=== PATIENT | male | born 1945 | race Caucasian/White ===

== ENCOUNTER 2022-12-21 15:23 | Emergency (ER) | payer MEDICARE, OTHER, SELFPAY ==
[2022-12-21 15:33] VITALS: BP 120/71; PULSE 77; RESP 18; TEMP 37.1; O2SAT 97; BMI 26.5
--- NOTE | 2022-12-21 15:48 | XR_ITS ---
The [address] [address] Patient Name: ABDOULAYE HUMPHRIES MRN: [id number] date: 1945 Sex: M Assigned Patient Location: ED.MAIN Current Patient Location: ED.MAIN Accession/Order Number: [id number] Exam Date: 12/21/2022 15:52 Report Date: 12/21/2022 16:31 At the request of: ALETHA BRITTON Procedure: XR shoulder LT min 2V EXAM: XR clavicle LT, XR shoulder LT min 2V HISTORY: Fall COMPARISON: None. TECHNIQUE: 2 views of the clavicle and 3 views of the shoulder. FINDINGS: IMPRESSION: Displaced intra-articular fracture of the left distal clavicle. Degenerative changes of the acromioclavicular joint. The glenohumeral joint is unremarkable for patient's age. No additional fracture, dislocation or subluxation. Electronically authenticated by: MEHNAZ DOMINGUEZ Date: 12/21/2022 16:31
--- NOTE | 2022-12-21 15:50 | ED_ITS ---
HPI - Extremity Injury (Upper) General Chief Complaint: Extremity Injury, Upper Stated Complaint: shoulder pain d/t fall Time Seen by Provider: 12/21/22 15:28 Source: patient Mode of arrival: walk-in Limitations: physical limitation History of Present Illness HPI narrative: patient here with an injury to his left clavicular left shoulder area. He fell couple hours ago at home. He did not his head or neck and has no loss of consciousness he has a good recall of all events. He has no pain in his neck. Denies any other injuries to his trunk torso or extremities. He'll be sent to imaging for left clavicle and shoulder. He's not had previous fractures in these areas. Related Data Home Medications Medication Instructions Recorded Confirmed alprazolam 0.5 mg tablet 0.5 mg PO DAILY PRN anxiety 12/21/22 12/21/22 midodrine 5 mg tablet 5 mg PO TID 12/21/22 12/21/22 sertraline 100 mg tablet 200 mg PO Q24H 12/21/22 12/21/22 trazodone 100 mg tablet 200 mg PO DAILY 12/21/22 12/21/22 Allergies Allergy/AdvReac Type Severity Reaction Status Date / Time No Known Drug Allergies Allergy Verified 12/21/22 15:32 PFSH [facility] Social History Smoking status: Never smoker Exam Narrative Exam Narrative: mildly uncomfortable awake alert oriented ?3 very stoic. Problem focused examination as below Constitutional Vital Signs - 24 hr 12/21/22 15:33 Temperature 98.7 F Pulse Rate [Monitor] 77 Respiratory Rate 18 Blood Pressure [Right Arm] 120/71 H Pulse Oximetry 97 Oxygen Delivery Method Room Air Respiratory Common normals: normal respiratory effort, no retractions, no use of accessory muscles and clear to auscultation bilaterally Extremity Common normals: normal to inspection Other: patient has discomfort in in the mid to distal clavicle on the left side. The shoulder is really asymptomatic and normal inspection. The elbow forearm and wrist area is atraumatic. Course Vital Signs Vital signs: Vital Signs Temperature 98.7 F 12/21/22 15:33 Pulse Rate 77 12/21/22 15:33 Respiratory Rate 18 12/21/22 15:33 Blood Pressure 120/71 H 12/21/22 15:33 Pulse Oximetry 97 12/21/22 15:33 Oxygen Delivery Method Room Air 12/21/22 15:33 Temperature 98.7 F 12/21/22 15:33 Pulse Rate 77 12/21/22 15:33 Respiratory Rate 18 12/21/22 15:33 Blood Pressure 120/71 H 12/21/22 15:33 Pulse Oximetry 97 12/21/22 15:33 Oxygen Delivery Method Room Air 12/21/22 15:33 MDM - Extremity Injury (Upper) MDM Narrative Medical decision making narrative: x-rays were reviewed by myself show nondisplaced fracture of the distal clavicle. Neurovascular examination of the extremity is normal. We will place him in a sling and swath and follow-up with orthopedics Discharge Plan Discharge Chief Complaint: Extremity Injury, Upper Clinical Impression: Fracture of acromial end of left clavicle Patient Disposition: Home, Self-Care Time of Disposition Decision: 16:12 Prescriptions / Home Meds: No Action midodrine 5 mg tablet 5 mg PO TID trazodone 100 mg tablet 200 mg PO DAILY sertraline 100 mg tablet 200 mg PO Q24H alprazolam 0.5 mg tablet 0.5 mg PO DAILY PRN (Reason: anxiety) Instructions: Clavicle Fracture (ED) Stand Alone Forms: Portal Instructions Referrals: ADITI JAMES [Primary Care Provider] - 1 week Discharge Date/Time: 12/21/22 16:54
--- NOTE | 2022-12-21 15:53 | XR_ITS ---
The [address] [address] Patient Name: ABDOULAYE HUMPHRIES MRN: [id number] date: 1945 Sex: M Assigned Patient Location: ER Current Patient Location: ED.MAIN Accession/Order Number: [id number] Exam Date: 12/21/2022 16:02 Report Date: 12/21/2022 16:31 At the request of: ALETHA BRITTON Procedure: XR clavicle LT EXAM: XR clavicle LT, XR shoulder LT min 2V HISTORY: Fall COMPARISON: None. TECHNIQUE: 2 views of the clavicle and 3 views of the shoulder. FINDINGS: IMPRESSION: Displaced intra-articular fracture of the left distal clavicle. Degenerative changes of the acromioclavicular joint. The glenohumeral joint is unremarkable for patient's age. No additional fracture, dislocation or subluxation. Electronically authenticated by: MEHNAZ DOMINGUEZ Date: 12/21/2022 16:31
== END 2022-12-21 16:54 | disposition home or self-care (01) ==
PROVIDERS: Emergency Provider Emergency Medicine Emergency Medical Services; PCP Family Medicine
DX: S42.032A Displaced fracture of lateral end of left clavicle, initial encounter for closed fracture (principal); W19.XXXA Unspecified fall, initial encounter; Z79.899 Other long term (current) drug therapy
CPT/HCPCS: 73000; 73030; 99283

== ENCOUNTER 2023-04-21 12:07 | Outpatient (OUT) | payer MEDICARE, OTHER, SELFPAY ==
[2023-04-22 09:10] LABS: PSA, Free 1.56 ng/mL; Prostate Specific Ag 5.1 ng/mL (0.0-4.0)
== END 2023-04-21 12:08 | disposition home or self-care (01) ==
LOC: LAB 12:07
PROVIDERS: PCP Family Medicine; Visit Provider Urology
DX: R97.20 Elevated prostate specific antigen [PSA] (principal); N40.1 Benign prostatic hyperplasia with lower urinary tract symptoms; N13.8 Other obstructive and reflux uropathy
CPT/HCPCS: 36415; 84153; 84154

== ENCOUNTER 2023-10-23 11:28 | Outpatient (OUT) | payer MEDICARE, OTHER, SELFPAY ==
--- NOTE | 2023-10-23 11:31 | US_ITS ---
The [address] [address] Patient Name: ABDOULAYE HUMPHRIES MRN: [id number] date: 1945 Sex: M Assigned Patient Location: US Current Patient Location: Accession/Order Number: [id number] Exam Date: 10/23/2023 11:32 Report Date: 10/24/2023 11:37 At the request of: PATRICK PUGA Procedure: US renal BI EXAMINATION: US renal BI HISTORY: Gross Hematuria R31.0 ; history of stage III kidney disease COMPARISON: Ultrasound kidneys 07/25/2022, CT abdomen pelvis 06/16/2019 TECHNIQUE: Ultrasound examination was performed of the kidneys and urinary bladder. FINDINGS: RIGHT KIDNEY: Mild cortical thinning, 1.0 cm in thickness. No evidence of pelvocaliectasis, mass, or calculi. Normal renal cortical parenchymal echogenicity. Color Doppler demonstrates blood flow within the kidney. Kidney: 10.5 x 4.5 x 4.0 cm LEFT KIDNEY: Chronic, benign-appearing 9.2 cm cyst. Moderate cortical thinning, 0.6 cm. No evidence of pelvocaliectasis, mass, or calculi. Normal renal cortical parenchymal echogenicity. Color Doppler demonstrates blood flow within the kidney. Kidney: 10.4 x 4.7 x 3.7 cm BLADDER: No visible wall thickening, mass, or calculi. US/US renal BI IMPRESSION: 1. Mild right, moderate left cortical thinning consistent with patient history. 2. Chronic, benign-appearing 9.2 cm left renal cyst. 3. No appreciable mass, stones, or obstructive uropathy. Electronically authenticated by: MAGNUS FRIAS Date: 10/24/2023 11:37
== END 2023-10-23 11:29 | disposition home or self-care (01) ==
LOC: US 11:28
PROVIDERS: PCP Family Medicine; Visit Provider Urology
DX: R31.0 Gross hematuria (principal); N28.1 Cyst of kidney, acquired
CPT/HCPCS: 76775

== ENCOUNTER 2023-12-18 11:16 | Outpatient (OUT) | payer MEDICARE, OTHER, SELFPAY ==
--- NOTE | 2023-12-18 11:22 | ECG_ITS ---
The [facility] Test Date: 2023-12-18 Pat Name: ABDOULAYE HUMPHRIES Department: Room: - Gender: Male [employer]omer [employer] Operator: : 1945 Requested By: Order Number: [id number] Reading MD: MARI HOLM Measurements Intervals [place] Rate: 56 P: 2 NC: 167 QRS: 22 QRSD: 90 T: 42 QT: 426 QTc: 411 Interpretive Statements SINUS BRADYCARDIA Compared to ECG 10/09/2022 14:08:12 Sinus tachycardia no longer present ST (T wave) deviation no longer present Electronically Signed On 12-18-2023 23:03:46 EDT by MARI HOLM
--- NOTE | 2023-12-18 12:03 | XR_ITS ---
The [address] [address] Patient Name: ABDOULAYE HUMPHRIES MRN: [id number] date: 1945 Sex: M Assigned Patient Location: [facility] Current Patient Location: Accession/Order Number: [id number] Exam Date: 12/18/2023 12:12 Report Date: 12/19/2023 07:45 At the request of: PATRICK PUGA Procedure: XR chest 2V EXAMINATION: XR chest 2V HISTORY: Preop exam COMPARISON: 10/24/2022 TECHNIQUE: PA and lateral FINDINGS: LUNGS: 3.2 x 1 cm density projects of the left midlung previously determined to be pleural calcification by CT exam. No new pulmonary nodule, mass or consolidation VASCULATURE: No increased pulmonary vasculature. PLEURA: No pneumothorax, effusion, or pleural thickening. CARDIAC: No cardiomegaly or cardiac silhouette abnormality. MEDIASTINUM: No visible mass or adenopathy. BONES: Mild degenerative disc disease and spondylosis without visible acute abnormalities. OTHER: Negative. XR/XR chest 2V IMPRESSION: No acute cardiopulmonary process Electronically authenticated by: MEHNAZ ROSE Date: 12/19/2023 07:45
[2023-12-18 12:32] LABS: Basophils Percent Auto 0.8 % (0.2-2.0); Eosinophils Absolute Auto 0.2 10^3/uL (0.0-0.7); Eosinophils Percent Auto 4.1 % (0.9-7.0); Hematocrit 39.6 % (42.0-54.0); Hemoglobin 12.5 g/dL (14.0-18.0); Immature Granulocytes Abs Auto 0.01 10^3/uL (0.00-0.03); Immature Granulocytes Pct Auto 0.2 % (0.0-0.5); Lymphocytes Absolute Auto 1.3 10^3/uL (1.2-3.8); Lymphocytes Percent Auto 25.5 % (20.5-60.0); Mean Corpuscular HGB Conc 31.6 g/dL (29.9-35.2); Mean Corpuscular Hemoglobin 30.5 pg (25.9-34.0); Mean Corpuscular Volume 96.6 fL (80.0-94.0); Mean Platelet Volume 10.5 fL (9.5-13.5); Monocytes Absolute Auto 0.5 10^3/uL (0.3-0.8); Monocytes Percent Auto 9.8 % (1.7-12.0); Neutrophils Absolute Auto 3.1 10^3/uL (1.4-6.5); Neutrophils Percent Auto 59.6 % (43.0-75.0); Platelet Count 204 10^3/uL (150-450); Red Cell Distribution Width 14.8 % (11.0-15.0); White Blood Count 5.2 10^3/uL (4.0-11.0)
[2023-12-18 13:07] LABS: Anion Gap 13.1; BUN Creatinine Ratio 13.9; Calcium 8.1 mg/dL (8.5-10.1); Carbon Dioxide 25.5 mmol/L (21.0-32.0); Chloride 110 mmol/L (98-107); Estimated GFR (African America 47 (>=60); Estimated GFR (Non-African Ame 38 (>=60); Glucose 95 mg/dL (74-106); INR 0.98; Partial Thromboplastin Time 28.3 sec (22.3-36.2); Potassium 4.6 mmol/L (3.5-5.1); Prothrombin Time 10.4 sec (9.0-11.6); Sodium 144 mmol/L (136-145)
[2023-12-18 14:20] LABS: Prostate Specific Antigen Dx 4.63 ng/mL (<=4.00)
== END 2023-12-18 11:17 | disposition home or self-care (01) ==
LOC: PST 11:17
PROVIDERS: PCP Family Medicine; Visit Provider Urology
DX: Z01.810 Encounter for preprocedural cardiovascular examination (principal); Z01.812 Encounter for preprocedural laboratory examination; N40.1 Benign prostatic hyperplasia with lower urinary tract symptoms
CPT/HCPCS: 71046; 80048; 84153; 85025; 85610; 85730; 93005

== ENCOUNTER 2024-01-15 11:29 | Day surgery (SDC) | payer MEDICARE, OTHER, SELFPAY ==
[2023-12-18 11:27] VITALS: BP 132/82; PULSE 58; TEMP 36.4; O2SAT 98; BMI 29.4
[2024-01-15] VITALS (18 sets, daily range): BP systolic 128–160; BP diastolic 73–108; PULSE 59–82; TEMP 36.2–36.6; O2SAT 95–100; BMI 27.9; BMI 28.6
[2024-01-15] MEDS: LACTATED RINGER'S SOLUTION 1,000 ML 50 ML IV (12:04)
[2024-01-15] MEDS: LEVOFLOXACIN IN DEXTROSE 5 % 500 MG/100 ML PIGGYBACK 100 MG IV (13:25)
[2024-01-15] MEDS: LACTATED RINGER'S SOLUTION 1,000 ML 1000 ML IV (14:34)
--- NOTE | 2024-01-15 15:18 | P.URON_ITS ---
Urology Surgery Operative Note Operative Note Procedure Date: 01/15/24 Time Out Performed: yes Pre-op Diagnosis: Gross hematuria; BPH with LUTS Post-op Diagnosis: same as pre-op Procedures performed: 1. Urethral meatal dilation with Tyrese sounds to 26 Trin[place]. 2. Cystoscopy. 3. Transurethral resection of the prostate. Anesthesia: GETA Primary Surgeon: Daniel Cruz Complications: None Estimated blood loss (mL): 5 Findings: 2 areas of minor bleeding from the prostate. Moderate prostatic regrowth. Specimens: Prostate chips Drains: 22 [place] three-way coud? Queen catheter in the bladder Taped to Traction and CBI. Indications for Procedures: This gentleman had a TURP a little less than 2 years ago. He developed recurrent bouts of gross hematuria. Office cystoscopy revealed that he had areas of the prostate that were Mildly bleeding.He now presents for cystoscopy, Fulguration and TURP. He has signed an informed consent after risks were explained. Some of these risks include bleeding, infection, anesthesia, retrograde ejaculation, urinary incontinence both temporary and permanent,Erectile dysfunction and possible need for further procedures to name a few. Detailed description of Procedure: The patient was brought to the operating room and placed on the operating room table in the supine position. SCDs were placed on the lower extremities and turned on and functioning during the entire case. Timeout was done by all parties in the room. We all agreed upon the patient's identification and the planned procedures for this patient. Genn. anesthesia was then administered. The patient was then repositioned into the modified dorsal lithotomy position. All pressure points were satisfactorily padded. Genitalia were sterilely prepped and draped in usual fashion.I started by attempting to pass a 26 [place] Olympus resectoscope with a standard bipolar loop electrode but was unable due to mild meatal stenosis. I then used Tyrese sounds and dilated the meatus up to 26 [place]. I then was able to get the resectoscope through the urethra and into the bladder. The bladder appeared without evidence of bleeding. There were no tumors. The orifices were marked with the loop electrode. I then brought the scope back into the prostate and found a few areas that were oozing blood. IDecided to resect some tissue. I started at the bladder neck and resected posteriorly to the Veru. Left lateral lobe tissue that was bleeding was then resected. Similarly, right lateral lobe tissue that was bleeding was resected. I then brought the scope to the apex and opened this up some and coagulated using the vaporization loop. I coagulated all of the resection bed and at the apex.The Ilich evacuator was used to get all of the chips out of the bladder and these were sent for permanent sections. The ureteral orifices were untouched. The prostate was now without evidence of bleeding. It is wide open. The scope was then removed. I then placed a 22 [place] three-way coud? Queen in the bladder. It was manually irrigated with a Irwin syringe. 30 cc of fluid was then placed in the balloon. It was then taped to traction and CBI was started. It irrigated clear. The anesthetic was then reversed. He was then transferred to a renderlin bed and wheeled to PACU in stable condition. Urinary Catheter Management Urinary Catheter Management 2-way Urethral: Cath placed during this visit: yes Urethral indwelling: Yes Reason for continuing: surgical procedure Insertion date: 01/15/24
[2024-01-15] MEDS: SOLIFENACIN SUCCINATE 10 MG TABLET PO (15:30)
[2024-01-15] MEDS: HYOSCYAMINE SULFATE 0.125 MG TAB.SUBL SL (15:48)
[2024-01-15] MEDS: 0.9 % SODIUM CHLORIDE 1,000 ML 80 ML IV (16:49)
[2024-01-15] MEDS: SODIUM CHLORIDE IRRIG SOLUTION 3,000 ML 3000 ML IRR ×4 (16:50→22:33)
[2024-01-15] MEDS: CEFAZOLIN SODIUM/DEXTROSE,ISO 1 GM/50 ML IV.SOLN IV ×2 (18:25→23:09)
[2024-01-15] MEDS: TRAZODONE HCL 50 MG TABLET 200 MG PO (21:25)
[2024-01-16] VITALS: BP 119/63; PULSE 61; TEMP 36.7; O2SAT 95
[2024-01-16] MEDS: SODIUM CHLORIDE IRRIG SOLUTION 3,000 ML 3000 ML IRR (01:32)
[2024-01-16 04:00] VITALS: BP 115/62; PULSE 55; TEMP 36.6; O2SAT 94
[2024-01-16] MEDS: 0.9 % SODIUM CHLORIDE 1,000 ML 80 ML IV (06:05)
[2024-01-16 08:00] VITALS: BP 129/57; PULSE 55; TEMP 36.6; O2SAT 96
[2024-01-16] MEDS: SERTRALINE HCL 100 MG TABLET 200 MG PO (08:45)
[2024-01-16] MEDS: SOLIFENACIN SUCCINATE 10 MG TABLET PO (08:45)
== END 2024-01-16 10:20 | disposition home or self-care (01) ==
LOC: SURGOUT 15:08 → MS 15:24
PROVIDERS: PCP Family Medicine; Visit Provider Urology
PROC: (CPT 52630; principal; 2024-01-15 13:15)
DX: N40.1 Benign prostatic hyperplasia with lower urinary tract symptoms (principal); R31.0 Gross hematuria; Z87.891 Personal history of nicotine dependence; R97.20 Elevated prostate specific antigen [PSA]; Z80.42 Family history of malignant neoplasm of prostate; N28.1 Cyst of kidney, acquired; Z96.659 Presence of unspecified artificial knee joint; N18.9 Chronic kidney disease, unspecified
CPT/HCPCS: 52630; 36415; 88305; J0690; J1100; J2250; J2405; J2704; J3010

== ENCOUNTER 2024-12-14 10:34 | Emergency (ER) | payer MEDICARE, OTHER, SELFPAY ==
--- OUTSIDE RECORDS SUMMARY | 2024-11-24 11:00 | XMS_ITS | Encounter Summary ---
Author Organization [facility] Address [address] [place] [id number] Care Team Providers Care Professor Of Visual Arts Name Role Phone Unavailable Primary Care Provider Unavailabl e Source Comments In the event this information is protected by the Federal Confidentiality of Alcohol and Drug AbusePatient Records regulations: The Federal rules restrict any use of the information to criminally investigate or prosecute any alcohol or drug abuse patient.[facility] Reason for Visit * Reason Comments Follow Up Encounter Details Date Type Department Care Team (Latest Contact Info) Description 11/24/2024 11:00 AM EDT Office Visit Kidney Medicine [facility] [address] [phone] [place] [address] [place] [phone] Screening for genitourinary condition (Primary Dx); Stage 3b chronic kidney disease (HCC); Hyperglycemia Social History Tobacco Use Types Packs/Day Years Used Date Smoking Tobacco: Former Cigarettes 2 23 1 - 07/05/1981 Passive Smoke Exposure: Never Smokeless Tobacco: Never Comments:quit 30 years ago Alcohol Use Standard Drinks/Week Comments Yes 22 (1 standard drink = 0.6 oz pu re alcohol) occ PHQ-2 Answer Date Recorded PHQ2 Score 0 02/19/2018 Area Deprivation Index Answer Date Emmanuel rded National Score (1-100), lower number is lower ri sk 94 11/08/2022 State Score (1-10), lower number is lower risk 9 11/08/2022 Data from: https://www.neighborhoodatlas[facility]/. Last address used for calculation [address] [place] [address] [address] 11/08/2022 Sex and Gender Information Value Date Recorded Sex Assigned at Not on file Legal Sex Male 8:55 AM EST Gender Identity Male 02/18/2023 3:34 PM EDT Sexual Orientation Not on file documented as of this encounter Last Filed Vital Signs Vital Sign Reading Time Taken Comments Blood Pressure 112/71 11/24/2024 10:53 AM EDT Pulse 70 11/24/2024 10:53 AM EDT Temperature - - Respiratory Rate - - Oxygen Saturation - - Inhaled Oxygen Concentration - - Weight 94 kg (207 lb 3.7 oz) 11/24/2024 10:53 AM EDT Height 185.4 cm (6' 1 ) 11/24/2024 10:53 AM EDT Body Mass Index 27.34 11/24/2024 10:53 AM EDT documented in this encounter Patient Instructions * Patient Instructions* Chelo Ng MD - 11/24/2024 11:18 AM EDT We discussed your heart health and kidney function: - Your kidney function is stable, and there is no protein in your urine, which is a good sign. We will continue to monitor this. - Your blood pressure is excellent. However, you mentioned feeling dizzy when standing up. Please take your time when getting up, such as sitting on the edge of the bed before standing. - Continue taking Eliquis (apixaban) as prescribed for your stent. You mentioned your fireworks display specialist advised continuing it for about a year. Please confirm this plan with your fireworks display specialist at your nextvisit in December or January. Be cautious to avoid falls or injuries while on this medication, as it increases your risk of bruising and bleeding. - You reported no chest pain or shortness of breath, and your recent physical activity (e.g., moving stone and mulch) suggests the stent is working well. Continue staying active as tolerated. We discussed your blood sugar and diet: - Your glucose levels have been high on occasion. I recommend an A1c test to screen for diabetes orpre-diabetes. This test has been ordered and can be completed at your convenience in [place] or another lab of your choice. - Please work on reducing your intake of sweets and snack foods. Aim for a heart-healthy, balanced diet with more fruits, vegetables, and smaller portions of meat. Avoid adding sugar to foods like cherries and consider sugar-free options for beverages like moisés alessandra. We discussed your medications: - Continue taking Zoloft, trazodone, and Xanax as prescribed, as this combination has been working well for you. - You are taking magnesium oxide 400 mg at night. I will monitor your magnesium levels in the future to ensure they remain safe given your kidney condition. - You mentioned using oxycodone sparingly for back and neck pain. Continue to use it only as needed. We discussed your general health: - You reported occasional foamy urine, but this is not concerning as your urine protein levels are normal. - Your phosphorus level is slightly low. This is not concerning at this time, but we will continue to monitor it. - There is no swelling in your legs, and your physical exam was normal. Follow-up: - Please complete the A1c test at your convenience. - I recommend we continue seeing each other every six months. If you experience any new or worsening symptoms, such as chest pain, shortness of breath, or significant dizziness, please contact me immediately. documented in this encounter Progress Notes * Chelo Ng MD - 11/24/2024 11:00 AM EDT Images from the original note were not included. Department of Kidney Medicine Medical Specialties [facility] CHIEF COMPLAINT: CKD HPI: Mr. 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 . Interval Events: Mr. Sharpe had a stent placed in July and is under the care of a fireworks display specialist. He reports improvement in dyspnea and denies chest pain. He has been engaging in rigorous physical activities such as moving stones and carrying mulch without issues. He is currently on a blood thinner, possibly Eliquis or Plavix, for the stent and expects to continue for about a year. He notes easy bruising on this medication. He had a fall post-stent placement, resulting in a head injury and a CT scan performed was unremarkable. Mr. Sharpe reports occasional foamy urine but denies dysuria, hematuria, or leg swelling. He is on magnesium oxide 400 mg at night for leg cramps, which he feels is ineffective. He also takes Zoloft, trazodone, and Xanax for anxiety, which he reports are working well. He uses oxycodone sparingly for back and neck pain and takes acyclovir as needed. He experiences dizziness upon standing and denies recent weight loss. He has a preference for sweets and an erratic diet, consuming meat, potatoes, cherries with added sugar, pretzels with chip dip. He drinks cranberry juice and moisés alessandra ( not sugar-free variety). His glucose levels have been elevated, with a recent reading of 125 mg/dL, and he has not had an A1c test. He denies fevers or chills. Creatinine Date Value Ref Range Status 11/22/2024 1.87 (H) 0.73 - 1.22 mg/dL Final 05/13/2024 1.92 (H) 0.73 - 1.22 mg/dL Final 04/22/2024 1.80 (H) 0.73 - 1.22 mg/dL Final 10/15/2023 1.83 (H) 0.73 - 1.22 mg/dL Final ROS Constitutional: (-) fever, (-) chills, (-) weight loss Cardiovascular: (-) chest pain Respiratory: (-) shortness of breath Genitourinary: (-) dysuria, (-) hematuria, (+) foamy urine Musculoskeletal: (+) neck pain, (+) back pain Neurological: (+) dizziness Hematologic/Lymphatic: (+) easy bruising MEDICATIONS: Magnesium Amino Acid Chelate 100 mg tab Take by mouth. vitamin b complex capsule Take 1 capsule by mouth once daily. magnesium oxide 200 mg magnesium chew Take by mouth q 24 HR. acyclovir (ZOVIRAX) 5 % crea q 8 HR. oxyCODONE-acetaminophen (PERCOCET) 5-325 mg tablet TAKE 1 TABLET BY MOUTH UP TO TWICE A DAY IF NEEDED FOR PAIN tiZANidine (ZANAFLEX) 4 mg tablet Take by mouth. (Patient not taking: Reported on 04/22/2023) ALPRAZolam (XANAX) 0.5 mg tablet Take by mouth q 8 HR. finasteride (PROSCAR) 5 mg tablet Take by mouth q 24 HR. (Patient not taking: Reported on 04/22/2023) sertraline (ZOLOFT) 100 mg tablet Take by mouth q 24 HR. (Patient not taking: Reported on 04/22/2023) traZODone (DESYREL) 100 mg tablet Take by mouth q 24 HR. (Patient not taking: Reported on 04/22/2023) ALPRAZolam (XANAX) 0.5 mg tablet sertraline (ZOLOFT) 100 mg tablet traZODone (DESYREL) 100 mg tablet finasteride (PROSCAR) 5 mg tablet (Patient not taking: Reported on 04/22/2023) New blood thinner from stent placement for roughly 1 year. Not taking finasteride, occasionally oxycodone for neck, back pain ALLERGIES: ALLERGIES Allergen Reactions Buspirone Mental Status Change PHYSICAL EXAM: 11/24/24 1053 BP: 112/71 Pulse: 70 Weight: 94 kg (207 lb 3.7 oz) Height: 185.4 cm (6' 1 ) BP - standardized method Pulse 1 BP #1: 112/73 Pulse #1: 74 beats/min 2 BP #2 : 113/69 Pulse #2 : 73 beats/min 3 BP #3 : 111/70 Pulse #3 : 64 beats/min Average Average BP: 112/71 Average Pulse: 70 beats/min Orthostatic vitals Supine Sitting Standing Standing BP : 90/58 Standing pulse : 76 BP cuff location BP cuff location: Left upper arm BP cuff size BP cuff size: large adult Comments for BP values First BP (right) First BP (left) Constitutional: NAD, well nourished, alert, and cooperative. Eyes: Conjunctivae clear, PERRL. EOM intact. Ear, Nose, and Throat: MMM, dentition normal, lips normal. No nasal congestion, no oral lesions or thrush. Neck: Trachea midline, no JVD, neck supple, no palpable masses or thyromegaly. No cervical, axillary, or clavicular lymphadenopathy. Cardiovascular: RRR, normal S1 and S2, no murmurs, rubs, or gallops. No peripheral edema. No carotid bruit. Respiratory: Normal respiratory effort, lungs CTA bilaterally, no wheezes, rales, or rhonchi. Abdomen: Soft, non-tender, no masses, normal bowel sounds. No suprapubic tenderness. No CVA tenderness. Musculoskeletal: Good muscle tone in UE/LE. No joint effusions or deformities. Extremities: No clubbing, cyanosis, or edema. Skin: No rashes Neurologic: AAO x3 Psychiatric: Normal mood and affect. DATA: Diagnostic tests reviewed for today's visit: Blood work, imaging studies, and office notes were reviewed in [facility] Latest Reference Range & Units 11/22/24 12:28 Sodium 136 - 144 mmol/L 140 Potassium 3.7 - 5.1 mmol/L 4.7 Chloride 98 - 107 mmol/L 108 (H) CO2 22 - 30 mmol/L 24 BUN 9 - 24 mg/dL 18 Creatinine 0.73 - 1.22 mg/dL 1.87 (H) Glucose 74 - 99 mg/dL 125 (H) Calcium 8.5 - 10.2 mg/dL 9.1 Phosphorus 2.7 - 4.8 mg/dL 2.5 (L) Albumin 3.9 - 4.9 g/dL 4.2 Anion Gap 8 - 15 mmol/L 8 eGFR >=60 mL/min/1.73m 36 (L) Creatinine, Ur Random (UCRR) 20.0 - 300.0 mg/dL 163.9 Protein, Urine Random 0 - 20 mg/dL 17 Protein/Creat Ratio <0.15 mg/mg 0.10 (H): Data is abnormally high (L): Data is abnormally low ASSESSMENT: 79 year old male who presents with HTN, BPH s/p TURP, s/p hip replacement, 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 He has low normal BP with symptomatic orthostasis (chronic). Metabolic and volume status are normal PLAN: - Reminded to avoid NSAID medications - Recommended to adhere to a AHA diet for cardio and renoprotection - Ordered A1C given recurrent high glucose levels on chemistries - Recommended to pause when going from lying to sitting or sitting to standing position given orthostasis, especially on anticoagulant. Disclosures: Parts of the current progress note may have been copied from a previous note, updates have been made as clinically relevant. I spent a total of 30 minutes on the date of the service which included preparing to see the patient, [id number] patient care, completing clinical documentation, obtaining and/or reviewing separately obtained history, performing a medically appropriate examination, counseling and educating the pat ient/family/caregiver, and ordering medications, tests, or procedures. Chleo Ng MD Staff, Department of Kidney Medicine 11/23/2024 5:33 PM CC: PRIMARY CARE PHYSICIAN: No primary care provider on file. documented in this encounter Plan of Treatment Scheduled Orders Name Type Priority Associated Diagnoses Orde r Schedule MAGNESIUM Lab Routine Stage 3b chronic kidney disease (HCC) Expected: 11/24/2024, Expires: 02/23/2025 HEMOGLOBIN A1C Lab Routine Hyperglycemia Expected: 11/24/2024, Expires: 02/23/2025 documented as of this encounter Visit Diagnoses Diagnosis Screening for genitourinary condition- Primary Screening for other and unspecified genitourinary condition Stage 3b chronic kidney disease (HCC) Hyperglycemia Other abnormal glucose documented in this encounter
--- OUTSIDE RECORDS SUMMARY | 2024-12-13 23:59 | XMS_ITS | Continuity of Care Document ---
Author Organization 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 [address] [place], [place] [address] Encounter Diagnosis Urethral meatal stenosis(Discharge Diagnosis) - 12/13/24 BPH with urinary obstruction(Discharge Diagnosis) - 12/13/24 Family history of prostate cancer(Discharge Diagnosis) - 12/13/24 Elevated PSA(Discharge Diagnosis) - 12/13/24 Discharge Disposition: Home (Routine DC) Attending Physician: LASHELL JOSEPH PA-C Encounter Type: Clinic Allergies, Adverse Reactions, Alerts Substance Criticality Severity Reaction Reaction Severity Status busPIRone 1 Unknown Active 1mild to moderate Assessment and Plan Future Appointments Appointment Date:06/13/2025 11:30:00 AM Scheduled Provider: Location:[facility] Appointment Type:URO Nurse Visit Appointment Date:12/12/2025 11:40:00 AM Scheduled Provider:LASHELL JOSEPH PA-C Location:[facility] Appointment Type:URO Office Visit Future Scheduled Tests Laboratory* PSA Total 06/14/25 * PSA Total 12/13/25 Immunizations Given and Recorded Vaccine Date Status Refusal Reason influenza virus vaccine, inactivated 05/21/23 Emmanuel rded influenza virus vaccine, inactivated 05/26/22 Emmanuel rded influenza virus vaccine, inactivated 03/26/20 Emmanuel rded influenza virus vaccine, inactivated 03/13/19 Emmanuel rded influenza virus vaccine, inactivated 04/11/18 Emmanuel rded influenza virus vaccine, inactivated 03/30/17 Emmanuel rded influenza virus vaccine, inactivated 04/24/15 Emmanuel rded SARS-CoV-2 (COVID-19) [id number] 05/14/22 Recorded influenza, unspecified formulation 1 04/25/22 Emmanuel rded SARSCoV2 mRNA(uvwvccghn-sxbw-osfziu) vac 11/22/21 Recorded SARS-CoV-2 (COVID-19) mRNA BNT-162b2 vax 2 05/18/21 Recorded SARS-CoV-2 (COVID-19) mRNA BNT-162b2 vax 05/10/21 Recorded SARS-CoV-2 (COVID-19) mRNA BNT-162b2 vax 10/02/20 Recorded SARS-CoV-2 (COVID-19) mRNA BNT-162b2 vax 3 09/11/20 Recorded SARS-CoV-2 (COVID-19) mRNA BNT-162b2 vax 09/2020 Recorded diphtheria/pertussis, acel/tetanus adult 02/25/21 Recorded SARS-CoV-2 (COVID-19) mRNA-1273 vaccine 11/04/20 R ecorded pneumococcal 13-valent vaccine 03/13/19 Recorded zoster vaccine, inactivated 03/26/18 Recorded zoster vaccine, inactivated 01/23/18 Recorded pneumococcal 23-valent vaccine 01/23/15 Recorded 1Result Comment: 2023-01-01: [facility] 2Result Comment: COVID Booster Shot 3Result Comment: 2023-01-01: TPV22 Medications acetaminophen-oxycodone 325 mg-5 mg Tab Refill(s) 0 Start Date: 04/23/23 Status: Ordered Repeat number: 1 alprazolam 0.5 mg Tab Refills(s) 0 Start Date: 04/23/23 Status: Ordered Repeat number: 1 magnesium amino acids chelate Oral Start Date: 01/01/23 Status: Ordered Repeat number: 1 midodrine 5 mg Tab Refills(s) 0 Start Date: 04/23/23 Status: Ordered Repeat number: 1 sertraline Oral, Daily, Refills(s) 0 Start Date: 03/29/19 Status: Ordered Repeat number: 1 trazodone Oral, Refills(s) 0 Start Date: 03/29/19 Status: Ordered Repeat number: 1 Vitamin B Complex oral tablet 1 tab(s), Oral, Daily, 100 tab(s), Refill(s) 0 Start Date: 07/04/23 Status: Ordered Quantity: 100.0 Unit: tab(s) Repeat number: 1 Problem List Condition Confirmation Course Effective Dates Status H ealth Status Informant BPH with urinary obstruction Confirmed Active CKD (chronic kidney disease) Confirmed Active Renal cyst Confirmed Active Family history of prostate cancer Confirmed Active Gross hematuria Confirmed Active Hematuria Confirmed Resolved HT - Hypertension Confirmed Resolved Enuresis Confirmed Active Nocturia Confirmed Active Weak urinary stream Confirmed Active Post-void dribbling Confirmed Active Prostatitis Confirmed Active Proteinuria Confirmed Active Elevated PSA Confirmed Active Right flank pain Confirmed Active Syncope Confirmed Active Urethral meatal stenosis Confirmed Active Procedures Procedure Date Related Diagnosis Body Site Status TURP 01/15/24 Completed Flexible cystoscope 11/14/23 Compl eted TRUS/Bx 06/10/23 Completed Cystoscopy 08/13/22 Completed TURP - Transurethral resecti on of prostate 1 02/23/15 Completed Cystoscopy 01/17/15 Completed Urodynamics 12/28/14 Completed Colonoscopy Completed Knee replacement 2 Comple rivka Rotator cuff repair 3 Com pleted Stent 4 Completed 1cysto/UD 2both 3left side 4placed in heart Social History Social History Type Response Smoking Status Former smoker, quit more than 30 days ago; Tobacco Use: quit 35 years ago;Never; Type: Cigarettes; Concerns about tobacco use in household: No; Smoking Cessation Yes 1 entered on: 12/13/24 Sex Male Sex Representation Male (finding) 1pt quit smoking 35 yrs ago Hospital Discharge Instructions Patient Education 12/13/2024 12:42:46 Benign Prostatic Hyperplasia Benign Prostatic Hyperplasia Benign prostatic hyperplasia (BPH) is an enlarged prostate gland that is caused by the normal agingprocess. The prostate may get bigger as a man gets older. The condition is not caused by cancer. The prostate is a walnut-sized gland that is involved in the production of semen. It is located in front of the rectum and below the bladder. The bladder stores urine. The urethra carries stored urine ou t of the body. An enlarged prostate can press on the urethra. This can make it harder to pass urine. The buildup of urine in the bladder can cause infection. Back pressure and infection may progress to bladder damage and kidney (renal) failure. What are the causes? This condition is part of the normal aging process. However, not all men develop problems from thiscondition. If the prostate enlarges away from the urethra, urine flow will not be blocked. If it enlarges toward the urethra and compresses it, there will be problems passing urine. What increases the risk? This condition is more likely to develop in men older than 50 years. What are the signs or symptoms? Symptoms of this condition include: ??? Getting up often during the night to urinate. ??? Needing to urinate frequently during the day. ??? Difficulty starting urine flow. ??? Decrease in size and strength of your urine stream. ??? Leaking (dribbling) after urinating. ??? Inability to pass urine. This needs immediate treatment. ??? Inability to completely empty your bladder. ??? Pain when you pass urine. This is more common if there is also an infection. ??? Urinary tract infection (UTI). How is this diagnosed? This condition is diagnosed based on your medical history, a physical exam, and your symptoms. Tests will also be done, such as: ??? A post-void bladder scan. This measures any amount of urine that may remain in your bladder after you finish urinating. ??? A digital rectal exam. In a rectal exam, your health care provider checks your prostate by putting a lubricated, gloved finger into your rectum to feel the back of your prostate gland. This exam detects the size of your gland and any abnormal lumps or growths. ??? An exam of your urine (urinalysis). ??? A prostate specific antigen (PSA) screening. This is a blood test used to screen for prostate cancer. ??? An ultrasound. This test uses sound waves to electronically produce a picture of your prostate gland. Your health care provider may refer you to a specialist in kidney and prostate diseases (urologist). How is this treated? Once symptoms begin, your health care provider will monitor your condition (active surveillance or watchful waiting). Treatment for this condition will depend on the severity of your condition. Treatment may include: ??? Observation and yearly exams. This may be the only treatment needed if your condition and symptoms are mild. ??? Medicines to relieve your symptoms, including: ??? Medicines to shrink the prostate. ??? Medicines to relax the muscle of the prostate. ??? Surgery in severe cases. Surgery may include: ??? Prostatectomy. In this procedure, the prostate tissue is removed completely through an open incision or with a laparoscope or robotics. ??? Transurethral resection of the prostate (TURP). In this procedure, a tool is inserted through the opening at the tip of the penis (urethra). It is used to cut away tissue of the inner core of theprostate. The pieces are removed through the same opening of the penis. This removes the blockage. ??? Transurethral incision (TUIP). In this procedure, small cuts are made in the prostate. This lessens the prostate's pressure on the urethra. ??? Transurethral microwave thermotherapy (TUMT). This procedure uses microwaves to create heat. The heat destroys and removes a small amount of prostate tissue. ??? Transurethral needle ablation (TUNA). This procedure uses radio frequencies to destroy and remove a small amount of prostate tissue. ??? Interstitial laser coagulation (ILC). This procedure uses a laser to destroy and remove a smallamount of prostate tissue. ??? Transurethral electrovaporization (TUVP). This procedure uses electrodes to destroy and remove a small amount of prostate tissue. ??? Prostatic urethral lift. This procedure inserts an implant to push the lobes of the prostate away from the urethra. Follow these instructions at home: ??? Take [id number] and prescription medicines only as told by your health care provider. ??? Monitor your symptoms for any changes. Contact your health care provider with any changes. ??? Avoid drinking large amounts of liquid before going to bed or out in public. ??? Avoid or reduce how much caffeine or alcohol you drink. ??? Give yourself time when you urinate. ??? Keep all follow-up visits. This is important. Contact a health care provider if: ??? You have unexplained back pain. ??? Your symptoms do not get better with treatment. ??? You develop side effects from the medicine you are taking. ??? Your urine becomes very dark or has a bad smell. ??? Your lower abdomen becomes distended and you have trouble passing urine. Get help right away if: ??? You have a fever or chills. ??? You suddenly cannot urinate. ??? You feel light-headed or very dizzy, or you faint. ??? There are large amounts of blood or clots in your urine. ??? Your urinary problems become hard to manage. ??? You develop moderate to severe low back or flank pain. The flank is the side of your body between the ribs and the hip. These symptoms may be an emergency. Get help right away. Call 911. ??? Do not wait to see if the symptoms will go away. ??? Do not drive yourself to the hospital. Summary ??? Benign prostatic hyperplasia (BPH) is an enlarged prostate that is caused by the normal aging process. It is not caused by cancer. ??? An enlarged prostate can press on the urethra. This can make it hard to pass urine. ??? This condition is more likely to develop in men older than 50 years. ??? Get help right away if you suddenly cannot urinate. This information is not intended to replace advice given to you by your health care provider. Make sure you discuss any questions you have with your health care provider. Document Revised: 2022 Document Reviewed: 2022 [employer] Patient Education ?? 2023 [employer]. Follow Up Care 05/17/2024 14:33:28 With:LASHELL JOSEPH PA-C, URL Address: [address] [place] [address]. [place] [address] When:Within 1 Year(s) Patient Care team information Care Team Personnel Name: ADITI JAMES DO Position: FT Physician Member Role: Primary Care Physician Address: [address] [place], [place] [address] [address] [facility]: Care Team Related Persons Name: MILAN HUMPHRIES Name: JENNY HUMPHRIESY Name: MILAN HUMPHRIES Insurance Providers Guarantor name: ABDOULAYE Cullen HUMPHRIES Health Plan Information #: 1 Payer: NA Payer Identifier: [id number] Member Number: [id number] Group Number: [id number] Subscriber Identifier: [id number] Relationship to Subscriber: Self Coverage Type: MEDICARE Coverage Verification Date: 24 Telecom: NA Address: Health Plan Information #: 2 Payer: Payer Identifier: [id number] Member Number: [id number] Group Number: [id number] Subscriber Identifier: [id number] Relationship to Subscriber: Self Coverage Type: PRIVATE HEALTH INSURANCE Coverage Verification Date: CARRIE Telecom: NA Address:
[2024-12-14 10:39] VITALS: BP 134/71; PULSE 66; TEMP 36.7; O2SAT 97; BMI 27.8
--- NOTE | 2024-12-14 10:48 | PC.NURSE ---
pt having a bowel movement in room currently
--- NOTE | 2024-12-14 10:51 | ED.ABDPAIN1 ---
HPI - Abdominal Pain General Chief Complaint: Abdominal Pain Stated Complaint: ABDOMINAL PAIN Time Seen by Provider: 12/14/24 10:48 Source: patient Mode of arrival: walk-in History of Present Illness HPI narrative: The patient is a 79-year-old male is coming to the ER with a periumbilical and right lower quadrant pain that comes and goes, does not have the pain at the moment but he mentioned that the pain is mostly crampy, he has been having this pain for the last few days and he also have some constipation, the patient denies any nausea vomiting or any other concerns He also denies any abdominal surgeries before Related Data Home Medications ?Medication ?Instructions ?Recorded ?Confirmed alprazolam 0.5 mg tablet 0.5 mg PO DAILY PRN anxiety 12/21/22 12/15/23 midodrine 5 mg tablet 5 mg PO TID 12/21/22 12/15/23 sertraline 100 mg tablet 200 mg PO Q24H 12/21/22 12/15/23 magnesium amino acid chelate 100 100 mg PO DAILY 12/15/23 12/15/23 mg tablet oxycodone-acetaminophen 5 mg-325 1 tab PO Q8H PRN pain 12/15/23 12/15/23 mg tablet (Percocet) vitamin B complex 1 tab PO DAILY 12/15/23 12/15/23 trazodone 50 mg tablet 200 mg PO .QHS 01/15/24 01/15/24 Previous Rx's ?Medication ?Instructions ?Recorded doxycycline hyclate 100 mg capsule 100 mg PO BID 5 days #10 caps 01/15/24 solifenacin 10 mg tablet (Vesicare) 10 mg PO DAILY #7 tabs 01/15/24 bisacodyl 5 mg tablet,delayed 5 mg PO DAILY PRN constipation #10 12/14/24 release (Dulcolax (bisacodyl)) tabs Allergies Allergy/AdvReac Type Severity Reaction Status Date / Time buspirone Allergy Unknown Unknown Verified 12/15/23 16:06 Review of Systems ROS Status of ROS 10 or more systems reviewed and unremarkable except as noted in history and below [facility] Medical History (Updated 12/14/24 @ 12:17 by Zoie Patel MD) Anxiety ?F41.9 - Anxiety disorder, unspecified (ICD-10) Depression ?F32.A - Depression, unspecified (ICD-10) Hypotension ?I95.9 - Hypotension, unspecified (ICD-10) Concussion ?S06.0XAA - Concussion with loss of consciousness status unknown, initial encounter (ICD-10) Hematuria ?R31.9 - Hematuria, unspecified (ICD-10) Weak urinary stream ?R39.12 - Poor urinary stream (ICD-10) Syncope ?R55 - Syncope and collapse (ICD-10) Right flank pain ?R10.9 - Unspecified abdominal pain (ICD-10) Renal cyst ?N28.1 - Cyst of kidney, acquired (ICD-10) Proteinuria ?R80.9 - Proteinuria, unspecified (ICD-10) Prostatitis ?N41.9 - Inflammatory disease of prostate, unspecified (ICD-10) Post-void dribbling ?N39.43 - Post-void dribbling (ICD-10) Nocturia ?R35.1 - Nocturia (ICD-10) Gross hematuria ?R31.0 - Gross hematuria (ICD-10) Enuresis ?R32 - Unspecified urinary incontinence (ICD-10) Elevated PSA ?R97.20 - Elevated prostate specific antigen [PSA] (ICD-10) CKD (chronic kidney disease) ?N18.9 - Chronic kidney disease, unspecified (ICD-10) BPH (benign prostatic hyperplasia) ?N40.0 - Benign prostatic hyperplasia without lower urinary tract symptoms (ICD-10) Risk for falls ?Z91.81 - History of falling (ICD-10) Surgical History (Updated 12/18/23 @ 11:45 by Mary Ratliff RN) History of tonsillectomy ?Z90.89 - Acquired absence of other organs (ICD-10) H/O cervical spine surgery ?Z98.890 - Other specified postprocedural states (ICD-10) History of left hip replacement ?Z96.642 - Presence of left artificial hip joint (ICD-10) H/O repair of rotator cuff ?Z98.890 - Other specified postprocedural states (ICD-10) History of knee replacement ?Z96.659 - Presence of unspecified artificial knee joint (ICD-10) Hx of colonoscopy ?Z98.890 - Other specified postprocedural states (ICD-10) H/O transurethral resection of prostate ?Z98.890 - Other specified postprocedural states (ICD-10) ?Z90.79 - Acquired absence of other genital organ(s) (ICD-10) H/O prostate biopsy ?Z98.890 - Other specified postprocedural states (ICD-10) H/O cystoscopy ?Z98.890 - Other specified postprocedural states (ICD-10) Family History (Updated 12/18/23 @ 11:44 by Mary Ratliff, RN) Other Family history of cancer Family history of diabetes mellitus Family history of hypertension Family history of myocardial infarction Family history of stroke Heart disease Social History (Updated 12/18/23 @ 11:41 by Mary Ratliff, RN) Within the past year, how often did you have a drink containing alcohol: 2-4 times a month Smoking status: Former smoker Second hand tobacco smoke exposure: No Non-prescribed substance use: cannabis (any form) Previous occupational history: retired Highest level of school completed/degree received: Associate degree: occupational, technical, vocational program Little interest or pleasure in doing things: not at all Feeling down, depressed, or hopeless: not at all Exam Narrative Exam Narrative: Nurses notes and vital signs reviewed and patient is not hypoxic. General: Well-appearing and in no apparent distress. Skin: Warm, dry, no pallor noted. No rash. Head: Normocephalic, atraumatic. Neck: Supple, non-tender. Eye: Pupils are equal, round and EOMI. No scleral icterus. Ears, Nose, Mouth, and Throat: TM are clear, no nasal mucosal hypertrophy. Oral mucosa is moist, no posterior oropharynx erythema, uvula is mid-line Cardiovascular: Regular Rate and Rhythm without murmur, gallop or rub. Respiratory: No accessory muscle use or respiratory distress. Lungs are clear to auscultation, no wheezing, rales or rhonchi Chest Wall: no tenderness Back: No midline thoracic or lumbar vertebral tenderness. No CVA tenderness Musculoskeletal: normal ROM, no calf or popliteal tenderness, no lower extremity edema/swelling GI: Abdomen is soft, non-distended. Normal bowel sounds. No masses appreciated. There is right lower quadrant tenderness on deep palpation Neurological: A&O x4. No cranial nerve dysfunction observed. No truncal ataxia. Moves all extremities. Sensation intact. Psychiatric: Cooperative and interactive. Normal mood and affect. Constitutional Vital Signs, click to edit/add: Last Vital Signs Temp 98.1 F 12/14/24 10:39 Pulse 66 12/14/24 10:39 Resp 18 12/14/24 10:39 BP 134/71 12/14/24 10:39 Pulse Ox 97 12/14/24 10:39 O2 Del Method Room Air 12/14/24 10:39 Course Vital Signs Vital signs: Vital Signs Temperature 98.1 F 12/14/24 10:39 Pulse Rate 66 12/14/24 10:39 Respiratory Rate 18 12/14/24 10:39 Blood Pressure 134/71 12/14/24 10:39 Pulse Oximetry 97 12/14/24 10:39 Oxygen Delivery Method Room Air 12/14/24 10:39 Temperature 98.1 F 12/14/24 10:39 Pulse Rate 66 12/14/24 10:39 Respiratory Rate 18 12/14/24 10:39 Blood Pressure 134/71 12/14/24 10:39 Pulse Oximetry 97 12/14/24 10:39 Oxygen Delivery Method Room Air 12/14/24 10:39 MDM - Abdominal Pain MDM Narrative Medical decision making narrative: The patient had a right lower quadrant tenderness on the palpation and ruling out appendicitis was one of the concern CBC and chemistries did not show any acute pathology have a history of chronic kidney disease that is showing in his blood workup and the patient urinalysis showed no acute pathology as well Patient mentioned that the pain in the ER is not significant and he does not request anything for pain The patient CAT scan did not show any acute pathology he does have some constipation in addition to some panniculitis that was seen before and previous imaging Right now I did explain to the patient that with abdominal pain he cannot care for himself few days of liquid diet as rest as well as observe and monitor his symptoms. He also was provided Dulcolax for constipation management The patient is to follow up with primary care physician in next 2-3 days or to return to the emergency department should any of the signs or symptoms worsen or new symptoms develop. The patient agrees with the following Diagnosis and Treatment plan and the patient will be discharged home. Lab Data Labs: Lab Results 12/14/24 12/14/24 Range/Units 11:05 11:10 WBC 4.9 (4.0-11.0) 10^3/uL RBC 4.17 L (4.70-6.10) 10^6/uL Hgb 12.8 L (14.0-18.0) g/dL Hct 39.6 L (42.0-54.0) % MCV 95.0 H (80.0-94.0) fL MCH 30.7 (25.9-34.0) pg MCHC 32.3 (29.9-35.2) g/dL RDW 13.5 (11.0-15.0) % Plt Count 202 (150-450) 10^3/uL MPV 10.6 (9.5-13.5) fL Neut % (Auto) 60.6 (43.0-75.0) % Lymph % (Auto) 26.7 (20.5-60.0) % Davis % (Auto) 9.3 (1.7-12.0) % Eos % (Auto) 2.6 (0.9-7.0) % Baso % (Auto) 0.6 (0.2-2.0) % Neut # (Auto) 3.0 (1.4-6.5) 10^3/uL Lymph # (Auto) 1.3 (1.2-3.8) 10^3/uL Davis # (Auto) 0.5 (0.3-0.8) 10^3/uL Eos # (Auto) 0.1 (0.0-0.7) 10^3/uL Baso # (Auto) 0.0 (0.0-0.1) 10^3/uL Abs Immat Gran (auto) 0.01 (0.00-0.03) 10^3/uL Imm/Tot Granulo (auto) 0.2 (0.0-0.5) % Sodium 143 (136-145) mmol/L Potassium 4.2 (3.5-5.1) mmol/L Chloride 108 H (98-107) mmol/L Carbon Dioxide 28.2 (21.0-32.0) mmol/L Anion Gap 11.0 BUN 14.0 (7.0-18.0) mg/dL Creatinine 1.87 H (0.70-1.30) mg/dL Est GFR ( Amer) 43 L (>=60 mL/min/1.73m^2) Est GFR (Non-Af Amer) 35 L (>=60 mL/min/1.73m^2) BUN/Creatinine Ratio 7.5 Glucose 117 H (74-106) mg/dL Calcium 8.5 (8.5-10.1) mg/dL Total Bilirubin 0.4 (0.2-1.0) mg/dL AST 27 (15-37) U/L ALT 22 (16-63) U/L Alkaline Phosphatase 53 (46-116) U/L Total Protein 6.4 (6.4-8.2) g/dL Albumin 3.4 (3.4-5.0) g/dL Globulin 3.0 g/dL Albumin/Globulin Ratio 1.1 Urine Color Yellow (YELLOW) Urine Clarity Clear (CLEAR) Urine pH 6.0 (5.0-9.0) Ur Specific Pana 1.025 (1.005-1.025) Urine Protein 100 A (NEG/TRACE) mg/dL Urine Glucose (UA) Negative (NEGATIVE) mg/dL Urine Ketones Trace A (NEGATIVE) mg/dL Urine Occult Blood Negative (NEGATIVE) Urine Nitrite Negative (NEGATIVE) Urine Bilirubin Small A (NEGATIVE) Urine Urobilinogen 1.0 (0.2-1.0) EU/dL Ur Leukocyte Esterase Small A (NEGATIVE) Urine RBC 0-2 (0-2) #/HPF Urine WBC 5-10 A (NONE SEEN) #/HPF Ur Squamous Epith Cells Few A (NONE/RARE) #/LPF Urine Crystals None seen (None Seen) #/HPF Urine Bacteria Small A (NONE SEEN) #/HPF Urine Casts None seen (NONE SEEN) #/LPF Urine Mucus Small A (NONE SEEN) Ur [place] [place] Discharge Chief Complaint: Abdominal Pain Clinical Impression: Abdominal pain, Constipation Patient Disposition: Home, Self-Care Time of Disposition Decision: 12:17 Condition: Good Prescriptions / Home Meds: New bisacodyl [Dulcolax (bisacodyl)] 5 mg tablet,delayed release (DR/EC) 5 mg PO DAILY PRN (Reason: constipation) Qty: 10 0RF No Action midodrine 5 mg tablet 5 mg PO TID sertraline 100 mg tablet 200 mg PO Q24H alprazolam 0.5 mg tablet 0.5 mg PO DAILY PRN (Reason: anxiety) magnesium amino acid chelate 100 mg tablet 100 mg PO DAILY vitamin B complex Tablet 1 tab PO DAILY oxycodone-acetaminophen [Percocet] 5-325 mg tablet 1 tab PO Q8H PRN (Reason: pain) doxycycline hyclate 100 mg capsule 100 mg PO BID 5 Days Qty: 10 0RF solifenacin [Vesicare] 10 mg tablet 10 mg PO DAILY Qty: 7 0RF trazodone 50 mg tablet 200 mg PO .Q Print Language: Yi Instructions: Constipation (DC), Abdominal Pain (ED) Referrals: ADITI JAMES [Primary Care Provider, Family Practice] - 1 week
--- NOTE | 2024-12-14 10:52 | CT_ITS ---
The [address] [address] Patient Name: ABDOULAYE HUMPHRIES MRN: [id number] date: 1945 Sex: M Assigned Patient Location: ED.MAIN Current Patient Location: ED.MAIN Accession/Order Number: [id number] Exam Date: 12/14/2024 11:55 Report Date: 12/14/2024 12:07 At the request of: TEODORO SUMNER MD Procedure: CT abdomen pelvis wo con CT ABDOMEN AND PELVIS WITHOUT CONTRAST COMPARISON: 06/16/2019 CLINICAL DATA: Right lower quadrant pain for the past few days. Spiral images were obtained through the abdomen and pelvis without contrast. This CT exam was performed using one or more following dose reduction techniques: Automated exposure control, adjustment of the mA and/or kV according to patient size, or use of iterative reconstruction technique. Limited cuts through the lung bases show no contributory findings. Assessment of the intra-abdominal organs is slightly limited by the absence of contrast. There are scattered hepatic hypodensities which were also seen previously and may be cysts. No calcified gallstones are identified. The spleen, pancreas and adrenal glands show no acute findings. No renal calculi are visualized. There are left renal hypodensities measuring up to 9.3 cm in size suggesting cysts. There are also small parapelvic cyst at the lower pole of the right kidney. No hydronephrosis is identified. No ureteral dilatation or stones are seen. There is atherosclerotic plaque at the aorta, splenic and iliac arteries. There are small lymph nodes at the mesentery where there is still hazy density, possibly mild mesenteric panniculitis. No ascites is identified. Food debris is visualized within the stomach. There are normal caliber small bowel loops. Stool is noted along the colon. There is a tiny umbilical hernia containing fat. There are degenerative changes at the spine, greatest at the lower facets. There is also some degenerative change at the SI joints. Images through the pelvis are slightly limited by streak artifact from patient's left hip prosthesis. No dilated small bowel loops are present. A normal appendix is seen. There is stool at the distal colon. There is no prominent diverticular disease. The prostate is mildly prominent. The urinary bladder is poorly distended for evaluation. No ascites is seen. Benign-appearing distal external iliac and inguinal lymph nodes are present with fatty criselda. CT/CT abdomen pelvis wo con IMPRESSION: HEPATIC AND RENAL CYSTS. NO BOWEL OR URINARY TRACT OBSTRUCTION. POTENTIAL MINOR MESENTERIC PANNICULITIS, ALSO SEEN PREVIOUSLY. MILD PROSTATE HYPERTROPHY. NO ACUTE FINDINGS. Impression dictated by: Latisha Gastelum M.D. 12/14/2024 12:07 PM Dictation Location: [place] [address] Electronically authenticated by: [id number] Y Date: 12/14/2024 12:07
--- OUTSIDE RECORDS SUMMARY | 2024-12-14 10:52 | XMS_ITS | Encounter Summary ---
Author Organization [employer] [facility] Address [facility] [id number] [address] [place] [address] Care Team Providers Care Police Commanding Officer Name Role Phone Pedro Hillman DO Primary Care Provider [phone] Reason for Visit * Reason Comments Med Refill Encounter Details Date Type Department Care Team (Late st Contact Info) Description 07/29/2022 Refill [facility] - Family Medicine [address] [place] [address] Pedro Hillman DO [address], [facility] [place] [address] Anxiety Social History Tobacco Use Types Packs/Day Years Used Date Smoking Tobacco: Former Cigarettes 2 30 1 960 - 1990 Smokeless Tobacco: Never Alcohol Use Standard Drinks/Week Comments Not Currently 0 (1 standard drink = 0.6 oz pur e alcohol) PHQ-2 Answer Date Recorded Total Score 23 03/25/2022 Childcare Answer Date Recorded Childcare Unknown 12/16/2018 Employment Answer Date Recorded Employment Unknown 12/16/2018 Sex and Gender Information Value Date Recorded Sex Assigned at Not on file Legal Sex Male 11:39 AM EDT Gender Identity Not on file Sexual Orientation Not on file COVID-19 Exposure Response Date Recorded In the last month, have you been in contact with someone who was confirmed or suspected to have Coronavirus / COVID-19? No / Unsure 07/15/2022 3:44 PM EST documented as of this encounter Plan of Treatment Not on file documented as of this encounter Visit Diagnoses Diagnosis Anxiety Anxiety state, unspecified documented in this encounter Additional Health Concerns Assessment Noted Time PHQ-9 Depression Total Score: 022 3:16 PM EDT documented as of this encounter Care Teams Police Commanding Officer Relationship Specialty Start Date End Date Pedro Hillman DO [address] [place] [place] [address] PCP - General Family Medicine 03/25/22 documented as of this encounter
--- OUTSIDE RECORDS SUMMARY | 2024-12-14 10:52 | XMS_ITS | Encounter Summary ---
Author Organization [facility] Address [address] [place] [address] Phone Care Team Providers Care Instrument Assembler Name Role Phone Pedro Hillman Primary Care Provider Lorena Davila RN Unavailable Unavailable Encounter Details Date Type Department Care Team (Late st Contact Info) Description 07/20/2024 Scanned Document [facility] [address] [place] [id number] Scanning, Generic Provider Social History Tobacco Use Types Packs/Day Years Used Date Smoking Tobacco: Former Cigarettes Q uit: 1984 Smokeless Tobacco: Never Alcohol Use Standard Drinks/Week Comments Yes 0 (1 standard drink = 0.6 oz pur e alcohol) PHQ-2 Answer Date Recorded Patient Health Questionnaire-2 Score 2 11/29/2022 Sex and Gender Information Value Date Recorded Sex Assigned at Not on file Legal Sex Male 9:43 AM EST Gender Identity Not on file Sexual Orientation Not on file documented as of this encounter Plan of Treatment Upcoming Encounters Date Type Department Care Team (Late st Contact Info) Description 02/02/2025 2:40 PM EDT Office Visit [place] [address] [facility] [address] [place] [address] Aisha Roque MD [address] [facility], [address] [place] [address] documented as of this encounter Procedures Procedure Name Priority Date/Time Associated Diagnosis Comments OUTSIDE IMAGING SCAN 07/20/2024 ECHOCARDIOGRAM 07/20/2024 documented in this encounter Results * Echocardiogram (07/20/2024) Narrative 07/20/2024 Ordered by an unspecified provider. us Generic Provider Scanning CV ECHO PROCEDURES Fin al Result * OUTSIDE IMAGING SCAN (07/20/2024) Anatomical Region Laterality Modality Other Narrative 07/20/2024 Ordered by an unspecified provider. us Generic Provider Scanning OUTSIDE SCAN Final Result documented in this encounter Visit Diagnoses Not on filedocumented in this encounter Additional Health Concerns Assessment Noted Time PHQ-9 Depression Total Score: 15 023 2:29 PM EDT A fall risk assessment has been complete d for the patient 11/18/2023 10:50 AM EDT documented as of this encounter Care Teams Instrument Assembler Relationship Specialty Start Date End Date Pedro Hillman DO PCP - General 11/29/22 Lorena Davila, tile decoratorProduction Roustabout 07/22/24 10/21/24 documented as of this encounter
--- OUTSIDE RECORDS SUMMARY | 2024-12-14 10:52 | XMS_ITS | Encounter Summary ---
Author Organization [facility] Address [address] [place] [address] Care Team Providers Care Party Plan Sales Director Name Role Phone Pedro Hillman MD Primary Care Provider Encounter Details Date Type Department Care Team (Late st Contact Info) Description 06/02/2024 Clinisync Result Encounter [facility] External Department Unsolicited Vasu Choe, DPM FACFAS [address] [facility] [place] [address] Social History Tobacco Use Types Packs/Day Years Used Date Smoking Tobacco: Never Smokeless Tobacco: Never Alcohol Use Standard Drinks/Week Comments Yes 0 (1 standard drink = 0.6 oz pur e alcohol) Sex and Gender Information Value Date Recorded Sex Assigned at Not on file Legal Sex Male 8:13 PM EDT Gender Identity Not on file Sexual Orientation Not on file documented as of this encounter Plan of Treatment Upcoming Encounters Date Type Department Care Team (Late st Contact Info) Description 11/18/2025 1:15 PM EDT Office Visit [facility] [address] [place] [address] Stephen Grande DO [address] [place] [address] documented as of this encounter Procedures Procedure Name Priority Date/Time Associated Diagnosis Comments MRI ANKLE W/O CONTRAST LEFT 06/02/2024 7:11 PM EST documented in this encounter Results * MRI ANKLE W/O CONTRAST LEFT (06/02/2024 7:11 PM EST) Anatomical Region Laterality Modality Other 06/02/2024 7:11 PM EST Narrative 06/04/2024 1:19 PM EST Exam Date/Time: 06/02/2024 19:18 EST Reason for Exam: M76.62, S86.012A, M77.32 Report IMPRESSION: FINDINGS SUGGESTING MILD PLANTAR FASCIITIS. PARTIAL TEAR OF THE SPRING LIGAMENT. PARTIAL OBLITERATION OF THE SINUS TARSI FAT SUGGESTING TARSAL SINUS LIGAMENTOUS COMPLEX INJURY. MILD ACHILLES TENDINOSIS. EXAM: MRI Ankle w/o Contrast Left HISTORY: Ankle and heel pain TECHNIQUE: Multisequence multiplanar MRI of the ankle was performed without contrast COMPARISON: None available FINDINGS: Mild Achilles tendinosis. Mild thickening of the medial cord plantar fascia with thickness measuring approximately 6 mm. Minimal adjacent soft tissue edema. The tibialis posterior, flexor hallucis longus, and flexor digitorum longus tendons are intact. No space-occupying lesion within the tarsal tunnel. Peroneus longus and peroneus brevis tendons are intact. Extensor tendons are intact. The anterior and posterior tibiofibular ligaments, anterior and posterior talofibular ligaments, and calcaneofibular ligament are intact. Superficial and deep fibers of the deltoid ligament are intact. Partial tearing of the spring ligament. Partial obliteration of the sinus tarsi fat. Mild degenerative changes of the midfoot. No ankle joint effusion. No evidence of fracture or stress reaction of the visualized bones. Ordering Provider: Vasu Choe FINAL REPORT Dictated: 06/04/2024 1:16 pm Sukhdev Gonsalves DO Signed (Electronic Signature): 06/04/2024 1:16 pm Signed by: Sukhdev Gonsalves DO Transcribed by: SANJUANA Technologist: MOISES Procedure Note Radiology, Radiologist, - 06/04/2024 Exam Date/Time: 06/02/2024 19:18 EST Reason for Exam: M76.62, S86.012A, M77.32 Report IMPRESSION: FINDINGS SUGGESTING MILD PLANTAR FASCIITIS. PARTIAL TEAR OF THE SPRING LIGAMENT. PARTIAL OBLITERATION OF THE SINUS TARSI FAT SUGGESTING TARSAL SINUSLIGAMENTOUS COMPLEX INJURY. MILD ACHILLES TENDINOSIS. EXAM: MRI Ankle w/o Contrast Left HISTORY: Ankle and heel pain TECHNIQUE: Multisequence multiplanar MRI of the ankle was performedwithout contrast COMPARISON: None available FINDINGS: Mild Achilles tendinosis. Mild thickening of the medial cord plantarfascia with thickness measuring approximately 6 mm. Minimal adjacent soft tissueedema. The tibialis posterior, flexor hallucis longus, and flexor digitorumlongus tendons are intact. No space-occupying lesion within the tarsal tunnel. Peroneuslongus and peroneus brevis tendons are intact. Extensor tendons are intact. The anterior and posterior tibiofibular ligaments, anterior and posteriortalofibular ligaments, and calcaneofibular ligament are intact. Superficial and deepfibers of the deltoid ligament are intact. Partial tearing of the spring ligament.Partial obliteration of the sinus tarsi fat. Mild degenerative changes of themidfoot. No ankle joint effusion. No evidence of fracture or stress reaction of thevisualized bones. Ordering Provider: Vasu Choe FINAL REPORT Dictated: 06/04/2024 1:16 pm Sukhedv Gonsalves DO Signed (Electronic Signature): 06/04/2024 1:16 pm Signed by: Sukhdev Gonsalves DO Transcribed by: SANJUANA Technologist: MOISES Vasu Choe DPM [facility] Final Result documented in this encounter Visit Diagnoses Not on filedocumented in this encounter Care Teams Party Plan Sales Director Relationship Specialty Start Date End Date Pedro Hillman MD PCP - General Family Medicine 11/29/22 documented as of this encounter
--- OUTSIDE RECORDS SUMMARY | 2024-12-14 10:52 | XMS_ITS | Clinical Summary ---
Author Organization [employer] [facility] tem Address [id number] [address] [place] [address] Care Team Providers Care Senior Ios Software Engineer Name Role Phone Pedro Hillman Primary Care Provider [phone] Allergies Active Allergy Reactions Criticality Noted Date Comments Buspirone Abnormal Behavior,Rash Low 03/25/2022 Medications * This document contains information received from the source organization and may not represent a complete record from that organization. b complex vitamins tablet Take 1 tablet by mouth in the morning. 90 tablet 3 03/25/2022 Active magnesium oxide (MAGOX) 400 mg tablet 1 tablet as needed Orally Once a day Active oxyCODONE-aceta minophen (PERCOCET) 5-325 mg per tablet 1 tablet. 04/28/2024 Active traZODone (DESYREL) 50 mg tablet Take 4 tablets (200 mg total) by mouth nightly. 360 tablet 3 07/20/2024 Active atorvastatin (LIPITOR) 40 mg tablet Has not started it yet 07/22/2024 Active aspirin 81 mg Take 1 tablet (81 mg total) by mouth in the morning. Active clopidogreL (PLAVIX) 75 mg tablet Take 1 tablet (75 mg total) by mouth in the morning. 07/28/2024 Active sertraline (ZOLOFT) 100 mg tablet Take 2 tablets (200 mg total) by mouth every morning. 180 tablet 3 09/20/2024 Active multivit with min-folic acid (ONE-A-DAY VITACRAVES) 200 mcg tablet,chewable Chew 1 tablet and swallow in the morning. Active ALPRAZolam (XANAX) 0.5 mg tabletIndicatio ns:Anxiety Take 1 tablet (0.5 mg total) by mouth 2 (two) times a day as needed for anxiety. 180 tablet 10/31/2024 Active Active Problems Problem Noted Date Diagnosed Date Coronary artery disease of n ative artery of [place] heart with stable angina pectoris 07/23/2024 Cervical facet joint syndrome 12/29/2023 Fracture of hand 12/29/2023 Lumbar degenerative disc disease 12/29/2023 Melena 12/29/2023 Neck pain 12/29/2023 Renal cyst 12/29/2023 S/P total left hip arthroplasty 12/29/2023 Spondylosis without myelopat hy or radiculopathy, lumbosacral region 12/29/2023 Fatigue 11/18/2023 Autonomic neuropathy 08/26/2023 Orthostatic hypotension 08/26/2023 Major depressive disorder, recurrent episode, mo derate 08/20/2023 Nocturia 12/03/2022 Multinodular goiter 12/02/2022 Nontoxic single thyroid nodule 12/02/2022 Nodule of right lung 10/15/2022 Gross hematuria 09/13/2022 Weak urinary stream 09/13/2022 Herpes labialis 08/16/2022 Epidermal cyst 07/15/2022 Hypertensive kidney disease with stage 3b chronic kidney disease 07/15/2022 Benign prostatic hyperplasia with urinary obstru ction 03/25/2022 High prostate specific antigen (PSA) 03/25/2022 Post-void dribbling 03/25/2022 Proteinuria 03/25/2022 Urethral stricture 03/25/2022 Anemia 07/10/2021 Anxiety disorder 11/22/2020 Arthritis 11/22/2020 Chronic back pain 11/22/2020 Chronic depression 11/22/2020 Stage 3 chronic kidney disease 11/22/2020 Degeneration of spine 11/22/2020 Posttraumatic stress disorder 11/22/2020 Left thyroid nodule 04/12/2018 Resolved Problems Problem Noted Date Diagnosed Date Resolved Date Essential hypertension 05/15/202112/28 Encounters * This document contains information received from the source organization and may not represent a complete record from that organization. Date Type Department Care Team Description 10/06/2024 Travel 09/20/2024 Refill [facility] - Family Medicine [address] [place] [address] Sj Gibson MD from Last 3 Months Immunizations Immunization Administration Dates Next Due AS03 Adjuvant 03/13/2019,04/11/2018 COVID-19, mRNA, LNP-S, PF, 100mcg/0.5mL Dose 11/04/2020,10/05/2020 COVID-19, mRNA, LNP-S, PF, 3 0mcg/0.3mL Dose 05/18/2021,05/18/2021,05/10/2021,10/02 Influenza Nasal, Unspecified Formulation 04/25/2022,03/29/2014,06/02/2013,05/12,04/02/2011,03/29/2010,04/03/2009 ,05/03/2008 Influenza Vaccine, Quadrival ent, Adjuvanted 05/21/2023 Influenza, High-dose, Quadrivalent 05/26/2022, Influenza, Injectable, quadr ivalent (PF) 03/26/2020,03/30/2017,04/24/2015 Influenza, Trivalent, Adjuvanted 03/13/2019,12/2017 Influenza, Unspecified 04/25/2022,2019,03/13/2019,04/11,03/30/2017,04/24/2015 Pneumococcal Conjugate 13-Valent 03/13/2019 Pneumococcal Polysaccharide 01/23/2015 Pneumococcal, Unspecified 06/02/2013 RSV, recombinant, protein wild bunit RSVpreF, adjuvant reconstituted, 0.5 mL, PF 05/21/2023 Tdap 09/05/2022,02/25/2021 Zoster Vaccine Recombinant 03/26/2018,01/23/2018 Family History Medical History Relation Name Comments Prostate cancer Brother 1 Diabetes type II Brother 2 Heart disease Brother 2 Lung cancer Father No Known Problems Mother Breast cancer Sister Relation Name Status Comments Brother 1 Alive Brother 2 Father Mother Sister Alive Social History Tobacco Use Types Packs/Day Years Used Date Smoking Tobacco: Former Cigarettes 2 30 1 960 - 1989 Smokeless Tobacco: Never Tobacco Cessation:Counseling Given: Not Answered Alcohol Use Standard Drinks/Week Comments Yes 0 (1 standard drink = 0.6 oz pur e alcohol) Occasional Social Connection and Isolat ion Panel [NHANES] Answer Date Recorded In a typical week, how many times do you talk on the phone with family, friends, or neighbors? More than three times a week 04/08/2023 How often do you get togethe r with friends or relatives? Once a week 04/08/2023 How often do you attend chur or mormonism services? Never 04/08/2023 Do you belong to any clubs o r organizations such as mandaen groups, unions, fraternal or athletic groups, or school groups? No 04/08/2023 How often do you attend meet ings of the clubs or organizations you belong to? Never 04/08/2023 Are you , , di vorced, , never , or living with a partner? 04/08/2023 AUDIT-C Answer Date Recorded Q1: How often do you have a drink containing alc ohol? Monthly or less 10/15/2022 Q2: How many drinks containi ng alcohol do you have on a typical day when you are drinking? 1 or 2 10/15/2022 Q3: How often do you have si x or more drinks on one occasion? Never 10/15/2022 Overall Financial Resource Strain (CARDIA) Answe r Date Recorded How hard is it for you to pa y for the very basics like food, housing, medical care, and heating? Not hard at all 04/08/2023 PHQ-2 Answer Date Recorded Total Score 0 07/23/2024 [facility] - Occupational Stress Questionnaire Answer Date Recorded Do you feel stress - tense, restless, nervous, or anxious, or unable to sleep at night because your mind is troubled all the time - these days? Only a little 04/08/2023 Exercise Vital Sign Answer Date Recorde d On average, how many days pe r week do you engage in moderate to strenuous exercise (like a brisk walk)? 5 days 04/08/2023 On average, how many minutes do you engage in exercise at this level? 30 min 04/08/2023 PRAPARE - Transportation Answer Date Re corded In the past 12 months, has l ack of transportation kept you from medical appointments or from getting medications? No 09/2022 In the past 12 months, has l ack of transportation kept you from meetings, work, or from getting things needed for daily living? No 04/08/2023 Housing Instability Answer Date Recorde d Are you worried or concerned that in the next two months you may not have stable housing that you own, rent or stay in as a part of a household? No 04/08/2023 Childcare Answer Date Recorded Do problems getting child ca re make it difficult for you to work or study? No 04/08/2023 Employment Answer Date Recorded Do you need help finding a vencor hospitalal career center and/or a training program? No 04/08/2023 Hunger Screening Answer Date Recorded Within the past 12 months we worried whether our food would run out before we got money to buy more. Never True 10/06/2024 Within the past 12 months th e food we bought just didn't last and we didn't have money to get more. Never True 10/06/2024 Purpose - Life Answer Date Recorded I have a purpose and direction in my life. Agree 04/08/2023 Sex and Gender Information Value Date Recorded Sex Assigned at Not on file Legal Sex Male 11:39 AM EDT Gender Identity Not on file Sexual Orientation Not on file Last Filed Vital Signs Vital Sign Reading Time Taken Comments Blood Pressure 124/74 10/06/2024 11:27 AM EDT Pulse 67 10/06/2024 11:27 AM EDT Temperature 36.7 C (98 F) 07/23/2024 10:07 AM EST Respiratory Rate 18 07/23/2024 10:07 AM EST Oxygen Saturation 99% 07/23/2024 10:07 AM EST Inhaled Oxygen Concentration - - Weight 96.2 kg (212 lb) 10/06/2024 11:27 AM EDT Height 185.4 cm (6' 1 ) 07/23/2024 10:07 AM EST Body Mass Index 27.97 07/23/2024 10:07 AM EST Plan of Treatment Health Maintenance Due Date Last Done Comments COVID-19 Vaccine ( season) 2024 06/03/2023, 05/14/2022, 11/22/2021, Additional history exists Medicare Annual Wellness Visit 04/08/2024 04/08/2023 Influenza Vaccine 03/07/2025 05/21/2023, , 04/25/2022, Additional history exists Depression Screening 07/23/2025 07/23/2024 Fall Risk Screening 07/23/2025 07/23/2024 Tobacco Screening 10/06/2025 10/06/2024 DTaP,Tdap and Td Vaccines (4 - Td or Tdap) 07/27/2034 07/27/2024, 09/05/2022, 02/25/2021 Zoster (Shingles) Vaccine Completed 03/26/2018, Medical Devices Implanted Type Area Delivery Motorcycle Driver Device Identifier Shelf Expiration Date Model / Serial / Lot Healicoil Knotless Regenesorb Suture [place] 5.5mm , Self Tapping Implanted:Qty : 2 on 07/09/2023 by Neeraj Jean DO at [facility] Other Implant Right: Shoulder [employer] 03/14/2026 [id number] / N/A / [id number] Healicoil Regenesorb 4.75mm Suture [place] With One Ultratape (Cobraid Blue) And One Ultrabraid Suture (Blue) Implanted:Qty : 1 on 07/09/2023 by Neeraj Jean DO at [facility] Other Implant Right: Shoulder [employer]hew [id number] 07/09/2025 [id number] / N/A / [id number] Healicoil Regenesorb 4.75mm Suture [place] With One Ultratape (Blue0 And One Ultrabraid #2 Suture (Cobraid Black) Implanted:Qty : 1 on 07/09/2023 by Neeraj Jean DO at [facility] Other Implant Right: Shoulder [employer] [id number] 09/04/2025 [id number] / N/A / [id number] Insurance MEDICARE [facility] Care Teams Senior Ios Software Engineer Relationship Specialty Start Date End Date Pedro Hillman DO [address] [facility] [place] [address] PCP - General Family Medicine 03/25/22
--- OUTSIDE RECORDS SUMMARY | 2024-12-14 10:52 | XMS_ITS | Encounter Summary ---
Author Organization [facility] Address [id number] [address] [place] [address] Care Team Providers Care Lending Manager Name Role Phone SukumarPedro navarrete Primary Care Provider [phone] Encounter Details Date Type Department Care Team (Late st Contact Info) Description 10/10/2022 Orders Only [facility] - [facility] [address] [place] [address] External, Scanning Provider Social History Tobacco Use Types Packs/Day Years Used Date Smoking Tobacco: Former Cigarettes 2 30 1 960 - 1989 Smokeless Tobacco: Never Alcohol Use Standard Drinks/Week Comments Not Currently 0 (1 standard drink = 0.6 oz pur e alcohol) PHQ-2 Answer Date Recorded Total Score 0 09/13/2022 Childcare Answer Date Recorded Childcare Unknown 12/16/2018 [...] have Coronavirus / COVID-19? No / Unsure 09/13/2022 10:01 AM EST documented as of this encounter Plan of Treatment Not on file documented as of this encounter Procedures Procedure Name Priority Date/Time Associated Diagnosis Comments ECG 12-LEAD Routine 10/10/2022 documented in this encounter Results * ECG 12 lead (10/10/2022) us Scanning Provider External ECG ORDERABLES Final Result MANUALLY TRANSCRIBED RESULTS documented in this encounter Visit Diagnoses Not on filedocumented in this encounter Additional Health Concerns Assessment Noted Time PHQ-9 Depression Total Score: 0 09/14/19 23 10:07 AM EST documented as of this encounter Care Teams Lending Manager Relationship Specialty Start Date End Date Pedro Hillman DO [address] [place] [address] PCP - General Family Medicine 03/25/22 documented as of this encounter
--- OUTSIDE RECORDS SUMMARY | 2024-12-14 10:52 | XMS_ITS | Encounter Summary ---
Author Organization [facility] Address [address] [place] [address] Phone Care Team Providers Care Longwall Headgate Operator Name Role Phone Pedro Hillman Primary Care Provider Lorena Davila RN Unavailable Unavailable Encounter Details Date Type Department Care Team (Late st Contact Info) Description 07/21/2024 Scanned Document [facility] [address] [place] [id number] Scanning, Generic Provider Social History Tobacco Use [...] Description 02/02/2025 2:40 PM EDT Office Visit [place] [address] [facility] [address] [place] [address] Aisha Roque MD [address] [facility] [address], [address] [place] [address] documented as of this encounter Procedures Procedure Name Priority Date/Time Associated Diagnosis Comments CARDIAC CATHETERIZATION PROCEDURE - ONBASE SCAN 07/21/2024 documented in this encounter Results * Cardiac Catheterization - Onbase Scan (07/21/2024) Narrative 07/21/2024 Ordered by an unspecified provider. us Generic Provider Scanning CV CARDIAC CATH PROCED URES Final Result documented in this encounter Visit Diagnoses Not on filedocumented in this encounter Additional Health Concerns Assessment Noted Time PHQ-9 Depression Total Score: 15 023 2:29 PM EDT A fall risk assessment has been complete d for the patient 11/18/2023 10:50 AM EDT documented as of this encounter Care Teams Longwall Headgate Operator Relationship Specialty Start Date End Date Pedro Hillman DO PCP - General 11/29/22 Lorena Davila, consumer science teacherArt Handler 07/22/24 10/21/24 documented as of this encounter
--- OUTSIDE RECORDS SUMMARY | 2024-12-14 10:52 | XMS_ITS | Encounter Summary ---
Author Organization [facility] Sys tem Address [id number] [address] [place] [address] Care Team Providers Care Cylinder Loader Name Role Phone Pedro Hillman DO Primary Care Provider Encounter Details Date Type Department Care Team (Late st Contact Info) Description 06/14/2022 Orders Only [facility] Internal Medicine - Family Medicine [address] [place] [address] Pedro Hillman DO [address], [place] [address] Social History Tobacco Use Types Packs/Day Years Used Date Smoking Tobacco: Former Cigarettes 2 30 1 960 - 1990 Smokeless Tobacco: Never Alcohol Use Standard Drinks/Week Comments Not Currently 0 (1 standard drink = 0.6 oz pur e alcohol) PHQ-2 Answer Date Recorded Total Score 03/25/2022 Childcare Answer Date Recorded Childcare Unknown 12/16/2018 Employment Answer Date Recorded Employment Unknown 12/16/2018 Sex and Gender Information Value Date Recorded Sex Assigned at Not on file Legal Sex Male 11:39 AM EDT Gender Identity Not on file Sexual Orientation Not on file documented as of this encounter Plan of Treatment Not on file documented as of this encounter Visit Diagnoses Not on filedocumented in this encounter Additional Health Concerns Assessment Noted Time PHQ-9 Depression Total Score: 022 3:16 PM EDT documented as of this encounter Care Teams Cylinder Loader Relationship Specialty Start Date End Date Pedro Hillman DO [address] [facility], [place] [address] PCP - General Family Medicine 03/25/22 documented as of this encounter
--- OUTSIDE RECORDS SUMMARY | 2024-12-14 10:52 | XMS_ITS | Encounter Summary ---
Author Organization [facility] Address [id number] [address] [place] [address] Care Team Providers Care Mmi Teacher Name Role Phone SukumarPedro navarrete Primary Care Provider Encounter Details Date Type Department Care Team (Late st Contact Info) Description 07/04/2022 Telephone [facility] Internal Medicine - Family Medicine [address] [place] [address] Marilu Fatima MA Social History Tobacco Use Types Packs/Day Years [...] on file documented as of this encounter Miscellaneous Notes * Telephone Encounter - Marilu Fatima MA - 07/04/2022 10:57 AM EST Patient called and said he fell yesterday, blacked out, hit his head, and injured his back. He saidhe woke up today and has blood in his urine. He isn't sure if it has anything to do with his fall and wants to know what he should do? Should he be seen? * Telephone Encounter - Pedro Hillman DO - 07/04/2022 10:57 AM EST He needs to go the ER * Telephone Encounter - Marilu Fatima MA - 07/04/2022 10:57 AM EST Spoke with patient and advised him to go to the ER. He said when he fell he hit his lower back. He said he hasn't noticed anymore blood in his urine and said that when he got up this morning the peeda blood clot and it's been fine ever since. I advised him to go to the ER to make sure there isn't more going on. Patient understands. documented in this encounter Plan of Treatment Not on file documented as of this encounter Visit Diagnoses Not on filedocumented in this encounter Additional Health Concerns Assessment Noted Time PHQ-9 Depression Total Score: 23 022 3:16 PM EDT documented as of this encounter Care Teams Mmi Teacher Relationship Specialty Start Date End Date Pedro Hillman DO [address] [facility], [place] [address] PCP - General Family Medicine 03/25/22 documented as of this encounter
--- OUTSIDE RECORDS SUMMARY | 2024-12-14 10:52 | XMS_ITS | Encounter Summary ---
Author Organization [facility] Address [address] [facility] [address] Care Team Providers Care Member Of The Legislative Assembly Name Role Phone Pedro Hillman MD Primary Care Provider [phone] Encounter Details Date Type Department Care Team (Late Contact Info) Description 06/04/2023 External Result Encounter [facility] [address] [place] [address] Srinivasan Hernandez, SPECIAL ASSEMBLIES SUPERVISOR [address] [place], [place] [id number] Social History Tobacco Use Types Packs/Day Years [...] 11/18/2025 1:15 PM EDT Office Visit [facility] [address] [place] [address] Stephen Grande DO [address] [place] [address] documented as of this encounter Procedures Procedure Name Priority Date/Time Associated Diagnosis Comments XR CHEST 2 VIEWS 06/27/2023 9:57 AM EST HEMOGLOBIN, BLOOD GASES Routine 06/27/2023 9:32 AM EST PROTHROMBIN TIME-INR Routine 06/27/2023 9:32 AM EST BASIC METABOLIC PANEL Routine 06/27/2023 9:32 AM EST MR SHOULDER RIGHT WO IV CONTRAST 06/04/2023 8:31 AM EST documented in this encounter Results * XR chest 2 views (06/27/2023 9:57 AM EST) Anatomical Region Laterality Modality Chest Radiographic Stella ging 06/27/2023 9:57 AM EST Narrative 06/27/2023 9:56 AM EST THIS EXAM WAS PERFORMED AT [facility] PA and lateral chest: HISTORY: Preoperative exam. Anesthesia clearance. 2 views of the chest are obtained. There are no prior exams available for comparison. There is an ovoid opacity projecting over the left upper lobe seen on both the PA and lateral views. In the absence of previous exams for comparison, chest CT would be recommended for further evaluation.. No pneumothorax or effusion. Osseous structures appear intact. IMPRESSION: Ovoid left upper lobe opacity. Chest CT recommended. Finalized by John Pickard MD on 06/27/2023 9:56 AM Procedure Note Radiology, Radiologist, MD - 07/01/2023 THIS EXAM WAS PERFORMED AT [facility] PA and lateral chest: HISTORY: Preoperative exam. Anesthesia clearance. 2 views of the chest areobtained. There are no prior exams available for comparison. There is anovoid opacity projecting over the left upper lobe seen on both the PA andlateral views. In the absence of previous exams for comparison, chest CTwould be recommended for further evaluation.. No pneumothorax or effusion.Osseous structures appear intact. IMPRESSION: Ovoid left upper lobe opacity. Chest CT recommended. Finalized by John Pickard MD on 06/27/2023 9:56 AM Neeraj Jean DO IMG XR PROCEDURES Final Re sult * (ABNORMAL) Basic metabolic panel (06/27/2023 9:32 AM EST) Sodium 142 134 - 146 mmol/L [facility] Potassium, Bld 4.6 3.5 - 5.0 mmol/L [facility] Chloride 108 98 - 109 mmol/L [facility] Carbon Dioxide 27 22 - 32 mmol/L [facility] Anion Gap 7 5 - 15 mmol/L [facility] BUN 20 5 - 27 mg/dL [facility] Creatinine 1.72(H) 0.60 - 1.30 mg/dL [facility] Comment:METHOD TRACEABLE TO IDMS STANDARD Glucose 80 65 - 99 mg/dL [facility] Calcium 8.9 8.5 - 10.5 mg/dL [facility] EGFR 40(L) >59 ml/min/1.7 3sq.m [facility] Comment: Reported eGFR is based on the CKD-EPI 2020 equation that does not use a race coefficient. PERFORMED AT [address], [place] [address] 06/27/2023 9:32 AM EST 06/27/2023 9:33 AM EST Neeraj Jean DO LAB BLOOD ORDERABLES Final Result Performing Organization Address [facility] de Phone Number [facility] * Protime-INR (06/27/2023 9:32 AM EST) Pathologist [facility] PROTIME 11.1 9.8 - 13.2 sec [facility] INR 1.0 0.8 - 1.1 [facility] Comment:PERFORMED AT [place] [address], [place] [address] 06/27/2023 9:32 AM EST 06/27/2023 9:33 AM EST Neeraj Jean LAB BLOOD ORDERABLES Final Result Performing Organization Address City/[facility]/ZIP Co de Phone Number [facility] * Hemoglobin, blood gases (06/27/2023 9:32 AM EST) HEMOGLOBIN 13.0 13.0 - 17.0 g/dL [facility] Comment:PERFORMED AT [facility] [address],[place] [address] 06/27/2023 9:32 AM EST 06/27/2023 9:33 AM EST Neeraj Jean DO LAB BLOOD ORDERABLES Final Result [facility] * MR shoulder right wo IV contrast (06/04/2023 8:31 AM EST) Anatomical Region Laterality Modality Upper Extremities, Shoulder Right Magn etic Resonance 06/04/2023 8:31 AM EST Narrative 06/04/2023 8:30 AM EST THIS EXAM WAS PERFORMED AT [facility] MR RIGHT SHOULDER CLINICAL INFORMATION: Shoulder pain. COMPARISON: None. PROCEDURE: Multiplanar multisequence images of the shoulder performed. No intravenous contrast. FINDINGS: ROTATOR CUFF AND ASSOCIATED STRUCTURES Long head biceps tendon: Tendinosis, split tearing, tenosynovitis. Medially located within the bicipital groove. Rotator cuff and muscles: Focal full-thickness tear supraspinatus tendon anteriorly at the anterior leading edge, this measures roughly 1.5 cm in width, tendon retracted overlies the superior humeral head. A few intact posterior fibers remain. Mild infraspinatus tendinosis with some articular sided fraying. Moderate subscapularis tendinosis, partial tearing of the cranial fibers noted. Mild to moderate fatty infiltration the musculature, mild to moderate loss of supraspinatus muscle bulk. Bursa: Small-volume subacromial subdeltoid bursal fluid with bursal thickening. OSSEOUS STRUCTURES Acromioclavicular joint: Type 3 No os acromiale. 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 Bones: No Hill-Sachs, reverse Hill-Sachs, or bony Bankart lesions. No fracture. No osteonecrosis. No suspicious osseous lesion. GLENOHUMERAL JOINT Joint: Slight superior glenohumeral subluxation. Small-volume joint fluid. Cartilage: Partial thickness chondral loss noted. Labrum: Degenerative superior labrum, no paralabral cyst. Other support structures: Slight thickening and edematous appearance inferior capsular structures suggesting adhesive capsulitis. OTHER No enlarged lymph nodes. IMPRESSION: 1. Full-thickness tear supraspinatus tendon as described. Additional partial tearing subscapularis tendon. 2. Long head biceps tendinosis, tenosynovitis, split tearing. 3. Other chronic findings as described. Finalized by Juan Luis Xavier MD on 06/04/2023 8:30 AM Procedure Note Radiology, Radiologist, MD - 07/01/2023 THIS EXAM WAS PERFORMED AT [facility] RIGHT SHOULDER CLINICAL INFORMATION: Shoulder pain. COMPARISON: None. PROCEDURE: Multiplanar multisequence images of the shoulder performed. Nointravenous contrast. FINDINGS: ROTATOR CUFF AND ASSOCIATED STRUCTURES Long head biceps tendon: Tendinosis, split tearing, tenosynovitis.Medially located within the bicipital groove. Rotator cuff and muscles: Focal full-thickness tear supraspinatus tendon anteriorly at the anteriorleading edge, this measures roughly 1.5 cm in width, tendon retractedoverlies the superior humeral head. A few intact posterior fibers remain. Mild infraspinatus tendinosis withsome articular sided fraying. Moderate subscapularis tendinosis, partial tearing of the cranial fibersnoted. Mild to moderate fatty infiltration the musculature, mild to moderate lossof supraspinatus muscle bulk. Bursa: Small-volume subacromial subdeltoid bursal fluid with bursalthickening. OSSEOUS STRUCTURES Acromioclavicular joint: Type 3 No os acromiale. 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 Bones: No Hill-Sachs, reverse Hill-Sachs, or bony Bankart lesions. Nofracture. No osteonecrosis. No suspicious osseous lesion. GLENOHUMERAL JOINT Joint: Slight superior glenohumeral subluxation. Small-volume jointfluid. Cartilage: Partial thickness chondral loss noted. Labrum: Degenerative superior labrum, no paralabral cyst. Other support structures: Slight thickening and edematous appearanceinferior capsular structures suggesting adhesive capsulitis. OTHER No enlarged lymph nodes. IMPRESSION: 1. Full-thickness tear supraspinatus tendon as described. Additionalpartial tearing subscapularis tendon. 2. Long head biceps tendinosis, tenosynovitis, split tearing. 3. Other chronic findings as described. Finalized by Juan Luis Xavier MD on 06/04/2023 8:30 AM Srinivasan Hernandez SPECIAL ASSEMBLIES SUPERVISOR IMG MRI PROCEDURES Final Result documented in this encounter Visit Diagnoses Not on filedocumented in this encounter Care Teams Member Of The Legislative Assembly Relationship Specialty Start Date End Date Pedro Hillman MD PCP - General Family Medicine 11/29/22 documented as of this encounter
--- OUTSIDE RECORDS SUMMARY | 2024-12-14 10:52 | XMS_ITS | Encounter Summary ---
Author Organization [facility] Sys tem Address [id number] [address] [place] [address] Care Team Providers Care Hospice Home Health Aide Name Role Phone SukumarPedro navarrete Primary Care Provider [phone] Encounter Details Date Type Department Care Team (Late st Contact Info) Description 07/23/2024 Orders Only [facility] Internal Medicine - Family Medicine [address] [place] [address] Ref Prov, [place] [address] Social History Tobacco Use Types Packs/Day Years Used Date Smoking Tobacco: Former Cigarettes 1 - 1989 Smokeless Tobacco: Never Alcohol Use [...] 04/08/2023 How often do you attend chur ch or jewish services? Never 04/08/2023 Do you belong to any clubs o r organizations such as gnosticism groups, unions, fraternal or athletic groups, or [...] Answer Date Recorded Total Score 0 07/23/2024 [facility] - Occupational Stress [...] Recorded Do you need help finding a l ocal career center and/or a training program? No 04/08/2023 Hunger Screening Answer Date Recorded Within the past 12 months we worried whether our food would run out before we got money to buy more. Never True 07/23/2024 Within the past 12 months th e food we bought just didn't last and we didn't have money to get more. Never True 07/23/2024 Purpose - Life Answer Date Recorded I [...] Procedure Name Priority Date/Time Associated Diagnosis Comments NON [facility] CARDIAC CATH Routine 07/20/2024 11:15 AM EST documented in this encounter Results * Non [facility] Cardiac Catheterization (07/20/2024 11:15 AM EST) Anatomical Region Laterality Modality N/A Other us Not In System Ref Prov [facility] CARDIAC SERVICES ORDER SUPA Final Result documented in this encounter Visit Diagnoses Not on filedocumented in this encounter Additional Health Concerns Assessment Noted Time PHQ-9 Depression Total Score: 0 07/23/19 25 10:01 AM EST A Body Mass Index follow-up plan has been documented for the patient 07/01/2023 7:38 AM EST documented as of this encounter Care Teams Hospice Home Health Aide Relationship Specialty Start Date End Date Pedro Hillman DO [address], [place] [address] PCP - General Family Medicine 03/25/22 documented as of this encounter
--- OUTSIDE RECORDS SUMMARY | 2024-12-14 10:52 | XMS_ITS | Encounter Summary ---
Author Organization [facility] Address [address] [place] [id number] Care Team Providers Care Lesson Instructor Name Role Phone Unavailable Primary Care Provider Unavailabl e Source Comments In the event this information is protected by the Federal Confidentiality of Alcohol and Drug AbusePatient Records regulations: The Federal rules restrict any use of the information to criminally investigate or prosecute any alcohol or drug abuse patient.[facility] Encounter Details Date Type Department Care Team (Late st Contact Info) Description 03/14/2023 Get Medical Advice Kidney Medicine [facility] [address] [phone] Chelo Ng MD [address] [place] [address] Lab work Social History Tobacco Use Types Packs/Day Years Used Date Smoking Tobacco: Former Cigarettes 2 23 1 - 07/05/1981 Smokeless Tobacco: Never Comments:quit 30 years ago Alcohol Use Standard Drinks/Week Comments Yes 22 (1 standard drink = 0.6 oz pu re alcohol) case per week max, not daily PHQ-2 Answer Date Recorded PHQ2 Score 0 02/19/2018 Area Deprivation Index Answer Date Emmanuel rded National Score (1-100), lower number is lower ri sk 94 11/08/2022 State Score (1-10), lower number is lower risk 9 11/08/2022 Data from: https://www.neighborhoodatlas.medicine.[facility]/. Last address used for calculation [address] 11/08/2022 Sex and Gender Information Value Date Recorded Sex Assigned at Not on file Legal Sex Male 8:55 AM EST Gender Identity Male 02/18/2023 3:34 PM EDT Sexual Orientation Not on file documented as of this encounter Miscellaneous Notes * Telephone Encounter - Marlene Bunn - 03/21/2023 1:11 PM EDT Pt has called several times to request active lab orders to be entered on [employer]. NOV: 04/22/23 documented in this encounter Plan of Treatment Not on file documented as of this encounter Visit Diagnoses Not on filedocumented in this encounter
--- OUTSIDE RECORDS SUMMARY | 2024-12-14 10:52 | XMS_ITS | Encounter Summary ---
Author Organization [facility] Address [id number] [address] [place] [address] Care Team Providers Care Measurement Advisor Name Role Phone SukumarPedro navarrete Primary Care Provider Encounter Details Date Type Department Care Team (Late st Contact Info) Description 09/30/2022 Orders Only [facility] Internal [facility] - Family Medicine [address] [place] [address] Jennifer Justin CMA Syncope and collapse Social History Tobacco Use Types Packs/Day Years [...] Procedure Name Priority Date/Time Associated Diagnosis Comments ECHO COMPLETE WO CONTRAST Routine 09/30/2022 1:18 PM EDT Syncope and collapse documented in this encounter Results * Echo complete W/O contrast (09/30/2022 1:18 PM EDT) Anatomical Region Laterality Modality Chest N/A Ultrasound Esperanza Jon CHAMBER WORKER-TELESALES PROFESSIONAL CV ECHO ORDERABLES Final Result documented in this encounter Visit Diagnoses Diagnosis Syncope and collapse documented in this encounter Additional Health Concerns Assessment Noted Time PHQ-9 Depression Total Score: 0 09/14/19 23 10:07 AM EST documented as of this encounter Care Teams Measurement Advisor Relationship Specialty Start Date End Date Pedro Hillman DO [address] [facility], [place] [address] PCP - General Family Medicine 03/25/22 documented as of this encounter
--- OUTSIDE RECORDS SUMMARY | 2024-12-14 10:52 | XMS_ITS | Clinical Summary ---
Author Organization [facility] Address [address] [place] [address] Care Team Providers Care Log Chain Worker Name Role Phone Pedro Hillman MD Primary Care Provider [phone] Allergies Active Allergy Reactions Criticality Noted Date Comments Buspirone Unknown 12/02/2022 Medications ALPRAZolam (Xanax) 0.5 MG tablet every 12 (twelve) hours. Active magnesium oxide (Mag-Ox) 400 MG tablet 1 (one) time each day at the same time. Active oxyCODONE-aceta minophen (Percocet) 5-325 MG tablet every 6 (six) hours. Active sertraline (Zoloft) 100 MG tablet 1 (one) time each day at the same time. Active traZODone (Desyrel) 100 MG tablet 1 (one) time each day at the same time. Active tiZANidine (Zanaflex) 2 MG tablet Take 2 mg by mouth 2 (two) times a day as needed. 3 Active midodrine (Proamatine) 5 MG tablet Take 5 mg by mouth in the morning and 5 mg in the evening and 5 mg before bedtime. 3 Active Valium 10 MG tablet Take 10 mg by mouth 3 Active methylPREDNISol one (Medrol Dospak) 4 MG tabletsIndicati ons:Left Achilles tendinitis Follow schedule on MEDROL PACK package instructions to be used as directed 21 tablet 4 Active aspirin 81 MG EC tablet Take 81 mg by mouth in the morning. Active atorvastatin (Lipitor) 40 MG tablet Take 40 mg by mouth at bedtime Active clopidogrel (Plavix) 75 MG tablet TAKE 4 TABLETS BY MOUTH now then TAKE 1 TABLET BY MOUTH DAILY Active Active Problems Problem Noted Date Diagnosed Date Syncope 03/04/2023 Elevated PSA 12/03/2022 Enuresis 12/03/2022 FHx: prostate cancer 12/03/2022 Nocturia 12/03/2022 Right flank pain 12/03/2022 Chronic pharyngitis 12/02/2022 Multinodular goiter 12/02/2022 Nontoxic single thyroid nodule 12/02/2022 Thyroid nodule 12/02/2022 Nodule of right lung 10/15/2022 Gross hematuria 09/13/2022 Weak urinary stream 09/13/2022 Herpes labialis 08/16/2022 Epidermal cyst 07/15/2022 Hypertensive kidney disease with stage 3b chronic kidney disease (HCC) 07/15/2022 Benign prostatic hyperplasia with urinary obstru ction 03/25/2022 High prostate specific antigen (PSA) 03/25/2022 Post-void dribbling 03/25/2022 Proteinuria 03/25/2022 Urethral stricture 03/25/2022 Anemia 07/10/2021 Essential hypertension 05/15/2021 Anxiety 11/22/2020 Arthritis 11/22/2020 Chronic back pain 11/22/2020 Chronic depression 11/22/2020 Degeneration of spine 11/22/2020 Posttraumatic stress disorder 11/22/2020 Stage 3 chronic kidney disease (HCC) 11/22/2020 Left thyroid nodule 04/12/2018 Resolved Problems Problem Noted Date Diagnosed Date Resolved Date Cervical facet joint syndrome 10/30/2023 10/30/2023 Cervicalgia 10/30/2023 10/30/2023 Fracture of hand 10/30/2023 10/30/2023 Lumbar degenerative disc disease 10/30/2023 10/30/2023 Melena 10/30/2023 10/30/2023 Personal history of colonic polyps 10/30/2023 10/30/2023 Prostatitis 10/30/2023 10/30/2023 S/P total left hip arthroplasty 10/30/2023 10/30/2023 Autonomic neuropathy 08/26/2023 024 Orthostatic hypotension 08/26/2023 042 11/2023 Major depressive disorder, r ecurrent episode, moderate 08/20/2023 10/30/2023 Encounters Date Type Department Care Team Description 11/12/2024 3:30 PM EDT Office Visit [facility] [address] [place] [address] Stephen Grande, Left thyroid nodule (CMS/HCC) (Primary Dx); Chronic anticoagulation 11/12/2024 Bamboo flowsheet [facility] [address] [place] [address] Stephen Grande, 11/12/2024 Travel 11/02/2024 Orders Only [facility] [address] [place] [address] Stephanie Rausch MA Left thyroid nodule (CMS/HCC) (Primary Dx) from Last 3 Months Immunizations Immunization Administration Dates Next Due AS03 Adjuvant 03/13/2019,04/11/2018 Influenza Nasal, Unspecified 04/25/2022, 03/29/2014,06/02/2013,05/12,04/02/2011,03/29/2010,04/03/2009 ,05/03/2008 Influenza, High-dose Seasona l, Quadrivalent, Preservative Free 05/26/2022 Influenza, Seasonal, Quadriv alent, Adjuvanted 05/21/2023 Influenza, Unspecified 05/26/2022,2021,03/26/2020,03/13,04/11/2018,03/30/2017,04/24/2015 Influenza, injectable, quadr ivalent, preservative free 03/26/2020,03/30/2017,04/24/2015 Influenza, seasonal, injectable 03/26/2020,03/13 Influenza, trivalent, adjuvanted 03/13/2019,12/2017 Moderna Bivalent Booster Vaccination 05/14/2022 Moderna SARS-CoV-2 Vaccination 11/04/2020,2020 Pfizer Purple Cap SARS-CoV-2 Vaccination 05/18/2021,05/10/2021,10/02/2020 Pneumococcal Conjugate PCV 13 03/13/2019 Pneumococcal Polysaccharide PPSV23 01/23/2015 Pneumococcal, Unspecified 06/02/2013 RSV, recombinant, protein wild bunit RSVpreF, adjuvant reconstitu, 120mcg/0.5mL, PF (Arexvy) 05/21/2023 SARS-COV-2 (COVID-19) vaccin e, mRNA, spike protein, LNP, bivalent, preservative free, 30 mcg/0.3 mL dose, ander-sucrose formulation 05/14/2022 Tdap 09/05/2022,02/25/2021 Zoster, Recombinant 03/26/2018,01/23/2018 Family History Relation Name Status Comments Father Mother Social History Tobacco Use Types Packs/Day Years Used Date Smoking Tobacco: Never Smokeless Tobacco: Never Tobacco Cessation:Counseling Given: Not [...] Sign Reading Time Taken Comments Blood Pressure 126/74 06/28/2024 10:58 AM EST Pulse 80 06/28/2024 10:58 AM EST Temperature - - Respiratory Rate 17 03/11/2024 8:54 AM EDT Oxygen Saturation - - Inhaled Oxygen Concentration - - Weight 95.3 kg (210 lb) 11/12/2024 3:25 PM EDT Height 185.4 cm (6' 1 ) 11/12/2024 3:25 PM EDT Body Mass Index 27.71 11/12/2024 3:25 PM EDT Plan of Treatment Upcoming Encounters Date Type Department Care Team (Late st Contact Info) Description 11/18/2025 1:15 PM EDT Office Visit [facility] [address] [place] [phone] Stephen Grande DO [address] [place] [address] Health Maintenance Due Date Last Done Comments Influenza Vaccine (Season Ended) 2025 05/21/2023, 05/26/2022, 05/26/2022, Additional history exists Pneumococcal Vaccine: 65+ Years Completed 03/13/2019, 01/23/2015, 06/02/2013 Procedures Procedure Name Priority Date/Time Associated Diagnosis Comments TSH Routine 11/02/2024 11:22 AM EDT Left thyroid nodule (CMS/HCC) T4 (THYROXINE), TOTAL Routine 11/02/2024 11:22 AM EDT Left thyroid nodule (CMS/HCC) T3, TOTAL Routine 11/02/2024 11:22 AM EDT Left thyroid nodule (CMS/HCC) from Last 3 Months Results * (ABNORMAL) T3 (11/02/2024 11:22 AM EDT) TRIIODOTHYRONINE (T3) TOTAL 0.79(L) 0.87 - 1.78 ng/mL 11/02/2024 5:26 PM EDT [facility] Other Topography unknown / Unknown 11/02/2024 11:22 AM EDT 11/02/2024 11:22 AM EDT Stephen Grande DO LAB BLOOD ORDERABLES Final Result Performing Organization Address City/[facility]/ZIP Co de Phone Number [place] [phone], [facility] [address] [phone] * TSH (11/02/2024 11:22 AM EDT) THYROID STIMULATING HORMONE 2.38 0.45 - 5.33 u[iU]/mL 11/02/2024 1:44 PM EDT [facility] Other Topography unknown / Unknown 11/02/2024 11:22 AM EDT 11/02/2024 11:22 AM EDT Stephen Grande DO LAB BLOOD ORDERABLES Final Result [address] [place] [address], [facility] [address] [place] [address] * T4 (11/02/2024 11:22 AM EDT) THYROXINE (T4) TOTAL 7.71 5.39 - 11.82 ug/dL 11/02/2024 1:40 PM EDT [facility] Other Topography unknown / Unknown 11/02/2024 11:22 AM EDT 11/02/2024 11:22 AM EDT Stephen Grande DO LAB BLOOD ORDERABLES Final Result Performing Organization Address City/State/[facility] Co de Phone Number [facility] [address] [place] [address], [facility] [address] [place] [address] from Last 3 Months Insurance MEDICARE [facility] Care Teams Log Chain Worker Relationship Specialty Start Date End Date Pedro Hillman MD PCP - General Family Medicine 11/29/22
--- OUTSIDE RECORDS SUMMARY | 2024-12-14 10:53 | XMS_ITS | Encounter Summary ---
Author Organization [facility] Address [address] [place] [address] Care Team Providers Care Pet Care Technician Name Role Phone Unavailable Primary Care Provider Unavailabl e Source Comments In the event this information is protected by the Federal Confidentiality of Alcohol and Drug AbusePatient Records regulations: The Federal rules restrict any use of the information to criminally investigate or prosecute any alcohol or drug abuse patient.[facility] Encounter Details Date Type Department Care Team (Late st Contact Info) Description 07/22/2024 Get Medical Advice Kidney Medicine [facility] [address] [place] [address] Chelo Ng MD [address] [place] [phone] statin drugs Social History Tobacco Use Types Packs/Day Years [...] is lower risk 9 11/08/2022 Data from: https://www.neighborhoodatlas.medicine.[facility].edu/. Last address used for calculation [address] 11/08/2022 Sex and Gender Information [...]
--- OUTSIDE RECORDS SUMMARY | 2024-12-14 10:53 | XMS_ITS | Encounter Summary ---
Author Organization [facility] Address [address] [place] [address] Care Team Providers Care Fire Sprinkler Installer Name Role Phone Unavailable Primary Care Provider Unavailabl e Source Comments In the event this information is protected by the Federal Confidentiality of Alcohol and Drug AbusePatient Records regulations: The Federal rules restrict any use of the information to criminally investigate or prosecute any alcohol or drug abuse patient.[facility] Encounter Details Date Type Department Care Team (Late st Contact Info) Description 04/16/2024 Get Medical Advice Kidney Medicine [facility] [address] [place] [address] Chelo Ng MD [address] [place] [address] previsit testing Social History Tobacco Use Types Packs/Day Years [...] is lower risk 9 11/08/2022 Data from: https://www.neighborhoodatlas.medicine.[facility].edu/. Last address used for calculation [address] [place] [address] [address] 11/08/2022 Sex and Gender Information [...]
--- OUTSIDE RECORDS SUMMARY | 2024-12-14 10:53 | XMS_ITS | Encounter Summary ---
Author Organization [facility] Address [address] [place] [address] Care Team Providers Care Senior Process Analyst Name Role Phone Unavailable Primary Care Provider Unavailabl e Source Comments In the event this information is protected by the Federal Confidentiality of Alcohol and Drug AbusePatient Records regulations: The Federal rules restrict any use of the information to criminally investigate or prosecute any alcohol or drug abuse patient.[facility] Encounter Details Date Type Department Care Team (Late st Contact Info) Description 11/18/2024 Get Medical Advice Kidney Medicine [facility] [address] [place] [address] Chelo Ng MD [address] [place] [address] bloodwork testing Social History Tobacco Use Types Packs/Day [...] is lower risk 9 11/08/2022 Data from: https://www.neighborhoodatlas.medicine.[facility].edu/. Last address used for calculation [address] 11/08/2022 Sex and Gender Information [...]
--- OUTSIDE RECORDS SUMMARY | 2024-12-14 10:53 | XMS_ITS | Encounter Summary ---
Author Organization [facility] Address [id number] [address] [place] [address] Care Team Providers Care Community Health Nurse Supervisor Name Role Phone SukumarPedro navarrete Scott SPARROW Primary Care Provider [phone] Encounter Details Date Type Department Care Team (Late st Contact Info) Description 03/12/2024 Orders Only [facility] Internal Medicine - Family Medicine [address] [place] [address] Ref Prov, [place] [address] Social History Tobacco Use Types Packs/Day Years Used Date Smoking Tobacco: Former Cigarettes 1 1989 Smokeless Tobacco: Never Alcohol Use Standard [...] often do you attend chur ch or restorationism services? Never 04/08/2023 Do you belong to any clubs o r organizations such as adventist groups, unions, fraternal or athletic groups, or [...] 04/08/2023 PHQ-2 Answer Date Recorded Total Score 14 12/29/2023 [facility] of Occupat ional Health - Occupational Stress [...] got money to buy more. Never True 12/29/2023 Within the past 12 months th e food we bought just didn't last and we didn't have money to get more. Never True 12/29/2023 Purpose - Life Answer Date Recorded I [...] Procedure Name Priority Date/Time Associated Diagnosis Comments URINE CULTURE Routine 03/09/2024 2:22 PM EDT documented in this encounter Results * Urine Culture (03/09/2024 2:22 PM EDT) Urine us Not In System Ref Prov MICROBIOLOGY - GENERAL OR DERABLES Final Result MANUALLY TRANSCRIBED RESULTS documented in this encounter Visit Diagnoses Not on filedocumented in this encounter Additional Health Concerns Assessment Noted Time PHQ-9 Depression Total Score: 14 024 2:54 PM EDT A Body Mass Index follow-up plan has been documented for the patient 07/01/2023 7:38 AM EST documented as of this encounter Care Teams Community Health Nurse Supervisor Relationship Specialty Start Date End Date Pedro Hillman DO [address] [facility], [place] [address] PCP - General Family Medicine 03/25/22 documented as of this encounter
--- OUTSIDE RECORDS SUMMARY | 2024-12-14 10:53 | XMS_ITS | Encounter Summary ---
Author Organization [employer] [facility] Address [id number] [address] [place] [address] Care Team Providers Care Air Hose Coupler Name Role Phone SukumarPedro navarrete Scott SPARROW Primary Care Provider [phone] Encounter Details Date Type Department Care Team (Late st Contact Info) Description 07/24/2023 Telephone [facility] Internal Medicine - Family Medicine [address] [place] [phone] Radha Wade CMA Social History Tobacco Use Types Packs/Day Years Used Date Smoking Tobacco: Former Cigarettes - 1989 Smokeless Tobacco: Never Alcohol Use [...] often do you attend chur ch or pentecostalism services? Never 04/08/2023 Do you belong to any clubs o r organizations such as mormonism groups, unions, fraternal or athletic groups, or [...] PHQ-2 Answer Date Recorded Total Score 0 07/01/2023 [facility] of Occupat ional Health - Occupational [...] Recorded Do you need help finding a [facility] and/or a training program? No 04/08/2023 Hunger Screening Answer Date Recorded Within the past 12 months we worried whether our food would run out before we got money to buy more. Never True 07/01/2023 Within the past 12 months th e food we bought just didn't last and we didn't have money to get more. Never True 07/01/2023 Purpose - Life Answer Date Recorded I have a purpose and direction in my life. Agree 04/08/2023 Sex and Gender Information Value Date Recorded Sex Assigned at Not on file Legal Sex Male 11:39 AM EDT Gender Identity Not on file Sexual Orientation Not on file documented as of this encounter Miscellaneous Notes * Telephone Encounter - Radha Wade CMA - 07/24/2023 11:34 AM EST Marlene from Radiology called and stated that she needs a new order for GFR due to he needs a cratine also due to the kidney disease and the order will be 1 day past cut off. I think she might be talking about the CT chest maybe. He is getting this done on the documented in this encounter Plan of Treatment Not on file documented as of this encounter Visit Diagnoses Not on filedocumented in this encounter Additional Health Concerns Assessment Noted Time PHQ-9 Depression Total Score: 0 07/01/20 7:05 AM EST A Body Mass Index follow-up plan has been documented for the patient 07/01/2023 7:38 AM EST documented as of this encounter Care Teams Air Hose Coupler Relationship Specialty Start Date End Date Pedro Hillman DO [address] [facility] [place] [address] PCP - General Family Medicine 03/25/22 documented as of this encounter
--- OUTSIDE RECORDS SUMMARY | 2024-12-14 10:53 | XMS_ITS | Encounter Summary ---
Author Organization [facility] Address [facility] [place] [address] Care Team Providers Care Home Health Registered Nurse Name Role Phone Unavailable Primary Care Provider Unavailabl e Source Comments In the event this information is protected by the Federal Confidentiality of Alcohol and Drug AbusePatient Records regulations: The Federal rules restrict any use of the information to criminally investigate or prosecute any alcohol or drug abuse patient.[facility] Encounter Details Date Type Department Care Team (Late st Contact Info) Description 11/17/2024 Patient [facility] -[address] [place] [address] Mary Marquez RPh At your next appointment, choose [facility]. Social History Tobacco Use Types Packs/Day Years [...] is lower risk 9 11/08/2022 Data from: https://www.neighborhoodatlas.[facility].edu/. Last address used for calculation [address] [place] [address] [address] 11/08/2022 Sex and Gender Information [...]
--- OUTSIDE RECORDS SUMMARY | 2024-12-14 10:53 | XMS_ITS | Encounter Summary ---
Author Organization [facility] tem Address [id number] [address] [place] [address] Care Team Providers Care Administrative Library Assistant Name Role Phone Pedro Hillman DO Primary Care Provider Encounter Details Date Type Department Care Team (Late st Contact Info) Description 06/02/2024 Orders Only [facility] Internal Medicine - Family Medicine [address] [place] [address] Pedro Hillman DO [address] [place] [address] Social History Tobacco Use Types Packs/Day Years [...] often do you attend chur ch or mandaeism services? Never 04/08/2023 Do you belong to [...] Answer Date Recorded Total Score 14 12/29/2023 [facility] of Occupat ional Health [...] Recorded Do you need help finding a [facility] career center and/or a training program? No 04/08/2023 Hunger Screening Answer Date Recorded Within the past 12 months we worried whether our food would run out before we got money to buy more. Never True 04/29/2024 Within the past 12 months th e food we bought just didn't last and we didn't have money to get more. Never True 04/29/2024 Purpose - Life Answer Date Recorded I [...] documented as of this encounter Care Teams Administrative Library Assistant Relationship Specialty Start Date End Date Pedro Hillman DO [address], [facility] [place] [address] PCP - General Family Medicine 03/25/22 documented as of this encounter
--- OUTSIDE RECORDS SUMMARY | 2024-12-14 10:53 | XMS_ITS | Encounter Summary ---
Author Organization [facility] Address [id number] [address] [place] [address] Care Team Providers Care Order Builder Loader Name Role Phone SukumarPedro navarrete Primary Care Provider [phone] Encounter Details Date Type Department Care Team (Late st Contact Info) Description 12/19/2023 Orders Only [facility] Internal Medicine - Family Medicine [address] [place] [address] External, Scanning Provider Social History Tobacco Use [...] often do you attend chur ch or orthodox services? Never 04/08/2023 Do you belong to any clubs o r organizations such as nondenominational groups, unions, fraternal or athletic groups, or [...] Answer Date Recorded Total Score 0 07/01/2023 [facility] of Occupat ional Health - Occupational Stress [...] Recorded Do you need help finding a [facility] career [facility] and/or a training program? [...] documented as of this encounter Care Teams Order Builder Loader Relationship Specialty Start Date End Date Pedro Hillman DO [address] [facility], [place] [address] PCP - General Family Medicine 03/25/22 documented as of this encounter
--- OUTSIDE RECORDS SUMMARY | 2024-12-14 10:53 | XMS_ITS | Encounter Summary ---
Author Organization [facility] Address [address] [place] [address] Care Team Providers Care Crystal Machining Coordinator Name Role Phone Unavailable Primary Care Provider Unavailabl e Source Comments In the event this information is protected by the Federal Confidentiality of Alcohol and Drug AbusePatient Records regulations: The Federal rules restrict any use of the information to criminally investigate or prosecute any alcohol or drug abuse patient.[facility] Encounter Details Date Type Department Care Team (Late st Contact Info) Description 08/30/2023 Get Medical Advice Kidney Medicine [facility] [address] [place] [phone] Chelo Ng MD [address] [place] [address] upcoming appt. and lab Social History Tobacco Use Types Packs/Day Years [...] is lower risk 9 11/08/2022 Data from: https://www.neighborhoodatlas.medicine.[facility].edu/. Last address used for calculation [address] [place] [address] [address] 11/08/2022 Sex and Gender Information [...]
--- OUTSIDE RECORDS SUMMARY | 2024-12-14 10:53 | XMS_ITS | Encounter Summary ---
Author Organization [facility] Address [id number] [address] [place] [address] Care Team Providers Care Pyrometallurgical Engineer Name Role Phone SukumarPedro navarrete Primary Care Provider [phone] Encounter Details Date Type Department Care Team (Late st Contact Info) Description 10/31/2022 Telephone [facility] Internal Medicine - Family Medicine [address] [place] [phone] Radha Wade CMA Social History Tobacco Use Types Packs/Day Years Used Date Smoking Tobacco: Former Cigarettes 2 1 - 1989 Smokeless Tobacco: Never Alcohol Use Standard Drinks/Week Comments Not Currently 0 (1 standard drink = 0.6 oz pur e alcohol) AUDIT-C Answer Date Recorded Q1: How often do you have a drink containing alc ohol? Monthly or less 10/15/2022 Q2: How many drinks containi ng alcohol do you have on a typical day when you are drinking? 1 or 2 10/15/2022 Q3: How often do you have si x or more drinks on one occasion? Never 10/15/2022 PHQ-2 Answer Date Recorded Total Score 24 10/15/2022 Childcare Answer Date Recorded Childcare Unknown 12/16/2018 Employment Answer Date Recorded Employment Unknown 12/16/2018 Sex and Gender Information Value Date Recorded Sex Assigned at Not on file Legal Sex Male 11:39 AM EDT Gender Identity Not on file Sexual Orientation Not on file documented as of this encounter Miscellaneous Notes * Telephone Encounter - Radha Wade CMA - 10/31/2022 12:21 PM EDT Patient called and wanted a referral to Rheumatology for a second opinion for his health issues. Hewould like a referral to Dr. Umanzor * Telephone Encounter - Radha Wade CMA - 10/31/2022 12:21 PM EDT Notified patient documented in this encounter Plan of Treatment Not on file documented as of this encounter Visit Diagnoses Not on filedocumented in this encounter Additional Health Concerns Assessment Noted Time PHQ-9 Depression Total Score: 24 023 2:27 PM EDT documented as of this encounter Care Teams Pyrometallurgical Engineer Relationship Specialty Start Date End Date Pedro Hillman DO [address], [place] [address] PCP - General Family Medicine 03/25/22 documented as of this encounter
--- OUTSIDE RECORDS SUMMARY | 2024-12-14 10:53 | XMS_ITS | Encounter Summary ---
Author Organization [facility] Address [facility] [place] [address] Care Team Providers Care Machine Feeder Floorperson Name Role Phone Unavailable Primary Care Provider Unavailabl e Source Comments In the event this information is protected by the Federal Confidentiality of Alcohol and Drug AbusePatient Records regulations: The Federal rules restrict any use of the information to criminally investigate or prosecute any alcohol or drug abuse patient.[facility] Encounter Details Date Type Department Care Team (Late st Contact Info) Description 11/17/2024 Patient [facility] -[address] [place] [phone] Mary Marquez RPh At your next appointment, choose [facility]. Social History Tobacco Use Types [...] is lower risk 9 11/08/2022 Data from: https://www.neighborhoodatlas.[facility].edu/. Last address used for calculation [address] [place] [address] [address] 11/08/2022 Sex and Gender Information [...]
--- OUTSIDE RECORDS SUMMARY | 2024-12-14 10:53 | XMS_ITS | Encounter Summary ---
Author Organization [facility] Address [id number] [address] [place] [address] Care Team Providers Care Information Coder Name Role Phone SukumarPedro navarrete Scott SPARROW Primary Care Provider [phone] Encounter Details Date Type Department Care Team (Late st Contact Info) Description 06/02/2024 Refill [facility] - Family Medicine [address] [place] [address] Ignacia Hargrove, KEVIN Anxiety Social History Tobacco Use Types Packs/Day [...] often do you attend chur ch or faith services? Never 04/08/2023 Do you belong to any clubs o r organizations such as amish groups, unions, fraternal or athletic groups, or [...] Answer Date Recorded Total Score 14 12/29/2023 [facility] of Occupat ional Health - Occupational Stress [...] Recorded Do you need help finding a [facility] career [facility] and/or a training program? No [...] encounter Miscellaneous Notes * Telephone Encounter - Ignacia Hargrove CMA - 06/02/2024 2:38 PM EST I called pt and he does go to you for all his Meds. He is definitely in need of this XANAX. From here on out he will just have Dr Gibson for psychic meds. Thank you documented in this encounter Plan of Treatment [...] documented as of this encounter Care Teams Information Coder Relationship Specialty Start Date End Date Pedro Hillman DO [address], [facility] [place] [address] PCP - General Family Medicine 03/25/22 documented as of this encounter
--- OUTSIDE RECORDS SUMMARY | 2024-12-14 10:53 | XMS_ITS | Clinical Summary ---
Author Organization [facility] Address [address] [place] [address] Care Team Providers Care Armor Senior Sergeant Name Role Phone Unavailable Primary Care Provider Unavailabl e Allergies Active Allergy Reactions Criticality Noted Date Comments Buspirone Mental Status Change 02/07/2015 Medications sertraline (ZOLOFT) 100 mg tablet 02/07/2018 Active traZODone (DESYREL) 100 mg tablet 0 02/13/2018 Active finasteride (PROSCAR) 5 mg tablet 0 02/13/2018 Active ALPRAZolam (XANAX) 0.5 mg tablet 02/24/2018 Active magnesium oxide 200 mg magnesium chew Take by mouth q 24 HR. 09/07/2020 Active acyclovir (ZOVIRAX) 5 % crea q 8 HR. Active oxyCODONE-aceta minophen (PERCOCET) 5-325 mg tablet TAKE 1 TABLET BY MOUTH UP TO TWICE A DAY IF NEEDED FOR PAIN 02/08/2022 Active tiZANidine (ZANAFLEX) 4 mg tablet Take by mouth. 12/10/2021 Active ALPRAZolam (XANAX) 0.5 mg tablet Take by mouth q 8 HR. 04/03/2021 Active finasteride (PROSCAR) 5 mg tablet Take by mouth q 24 HR. Active sertraline (ZOLOFT) 100 mg tablet Take by mouth q 24 HR. Active traZODone (DESYREL) 100 mg tablet Take by mouth q 24 HR. Active vitamin b complex capsule Take 1 capsule by mouth once daily. Active Magnesium Amino Acid Chelate 100 mg tab Take by mouth. 01/01/2023 Active aspirin, enteric coated (ASPIRIN, ENTERIC COATED) 81 mg EC tablet Take 81 mg by mouth. Active clopidogrel (PLAVIX) 75 mg tablet Take 75 mg by mouth once daily. 07/28/2024 Active Active Problems Problem Noted Date Diagnosed Date Stage 3 chronic kidney disease 02/20/2022 Essential hypertension 02/20/2022 Left thyroid nodule 04/12/2018 Encounters Date Type Department Care Team Description 11/24/2024 11:00 AM EDT Office Visit [facility] [address] [place] [address] Chelo Ng MD Screening for genitourinary condition (Primary Dx); Stage 3b chronic kidney disease (HCC); Hyperglycemia 11/24/2024 Patient Outreach [facility] [address] [place], [place] [id number] Chelo Ng MD 11/22/2024 Travel 11/22/2024 Orders Only [facility] [address] [place], [place] [id number] Chelo Ng MD Stage 3b chronic kidney disease (HCC) (Primary Dx); Essential hypertension 11/18/2024 Orders Only [place] [id number] Chelo Ng MD Chronic kidney disease (CKD) stage G3b/A1, moderately decreased glomerular filtration rate (GFR) between 30-44 mL/min/1.73 square meter and albuminuria creatinine ratio less than 30 mg/g (HCC) (Primary Dx) 11/18/2024 Get Medical Advice [facility] [address] [place] [address] Chelo Ng MD bloodwork testing 11/17/2024 Patient [facility] [place] [address] Mary Marquez RPh At your next appointment, choose [facility]. 11/17/2024 Patient [facility] [place] [address] Mary Marquez RPh At your next appointment, choose [facility]. 10/10/2024 Patient Msg Kidney Medicine [facility] [address] [place] [address] Chelo Ng MD Appointment Request from Last 3 Months Immunizations Immunization Administration Dates Next Due AS03 adjuvant 03/13/2019,04/11/2018 COVID-19 original vaccine, a ge 12+ yr, monovalent (PFIZER-BIONTECH - GARCIA TOP) 11/22/2021 COVID-19 original vaccine, a ge 12+ yr, monovalent (PFIZER-BIONTECH - PURPLE TOP) 05/18/2021,05/10/2021,10/02/2020,09/11 COVID-19 original vaccine, f ull dose, monovalent (MODERNA) 11/04/2020,10/05/2020 influenza (HD-IIV4) vaccine, age 65+ yr, high dose, quadrivalent, PF (FLUZONE HIGH-DOSE) 05/26/2022 influenza (IIV4) vaccine, ag e 6 mo - 64 yr, quadrivalent, PF (AFLURIA, FLUARIX, FLULAVAL, FLUZONE) 03/26/2020,03/30/2017,04/24/2015 influenza (LAIV) vaccine, na wayne, unspecified formulation 04/25/2022,03/29/2014,06/02/2013,05/12,04/02/2011,03/29/2010,04/03/2009 ,05/03/2008 influenza (aIIV3) vaccine, a ge 65+ yr, trivalent, PF (FLUAD) 03/13/2019,04/11/2018 pneumococcal conjugate (PCV1 3) vaccine, 13 valent (PREVNAR 13) 03/13/2019 pneumococcal polysaccharide (PPV23) vaccine, 23 valent (PNEUMOVAX 23) 01/23/2015 pneumococcal vaccine, unspec ified formulation 06/02/2013 tetanus diphtheria pertussis (Tdap) vaccine, age 7+ yr (ADACEL, BOOSTRIX) 09/05/2022,02/25/2021 zoster (RZV) vaccine, recomb inant (SHINGRIX) 03/26/2018,01/23/2018 Family History Medical History Relation Comments Thyroid Maternal Grandmother Goiter Thyroid Mother She took thyroid medication Thyroid Cancer No Family History Relation Status Comments Maternal Grandmother Mother Social History Tobacco Use Types Packs/Day Years Used Date Smoking Tobacco: Former Cigarettes 2 23 1 - 07/05/1981 Passive Smoke Exposure: Never Smokeless Tobacco: Never Tobacco Cessation:Counseling Given: Not Answered Comments:quit 30 years ago Alcohol Use Standard Drinks/Week Comments Yes 22 (1 standard drink = 0.6 oz pu re alcohol) occ PHQ-2 Answer Date Recorded PHQ2 Score 0 02/19/2018 Area Deprivation Index Answer Date Emmanuel rded National Score (1-100), lower number is lower ri sk 94 11/08/2022 State Score (1-10), lower number is lower risk 9 11/08/2022 Data from: https://www.neighborhoodatlas.medicine.[facility].edu/. Last address used for calculation [address] 11/08/2022 Sex and Gender Information Value Date Recorded Sex Assigned at Not on file Legal Sex Male 8:55 AM EST Gender Identity Male 02/18/2023 3:34 PM EDT Sexual Orientation Not on file Last Filed Vital Signs Vital Sign Reading Time Taken Comments Blood Pressure 112/71 11/24/2024 10:53 AM EDT Pulse 70 11/24/2024 10:53 AM EDT Temperature 36.4 C (97.5 F) 10/29/2023 10:43 AM EDT Respiratory Rate 18 02/19/2018 7:23 PM EDT Oxygen Saturation 98% 11/08/2022 1:00 PM EDT Inhaled Oxygen Concentration - - Weight 94 kg (207 lb 3.7 oz) 11/24/2024 10:53 AM EDT Height 185.4 cm (6' 1 ) 11/24/2024 10:53 AM EDT Body Mass Index 27.34 11/24/2024 10:53 AM EDT Plan of Treatment Health Maintenance Due Date Last Done Comments Annual PCP Team Chronic Dise ase Visit 01/10/1964 Anxiety Screening 01/10/1964 Depression Screening 01/10/1964 Hepatitis C Screening 01/10/1963 Covid-19 Vaccine ( season) 2024 06/03/2023, 05/14/2022, 11/22/2021, Additional history exists Advance Directive Discussion 07/07/2024 Influenza Vaccine (Season Ended) 2025 05/21/2023, 05/26/2022, 04/25/2022, Additional history exists Hemoglobin/Hematocrit 04/22/2025 04/22/2024 , 10/15/2023, 03/31/2023, Additional history exists Serum Creatinine 11/22/2025 11/22/2024, 01/2024, 04/22/2024, Additional history exists BP Controlled (<130/80) 11/24/2025 11/24/2024 Diabetes Screening 06/27/2026 06/27/2023, 0 10/15/2022, 09/05/2022, Additional history exists DTaP,Tdap,Td Vaccine (4 - Td or Tdap) 07/27/2034 07/27/2024, 09/05/2022, 02/25/2021 Colonoscopy Discontinued 11/09/2012 Colorectal Cancer Screening Discontinued Shingrix Vaccine Completed 03/26/2018, 01/23/2018 Pneumococcal Vaccine: 50+ Completed 2018, 01/23/2015, 06/02/2013 RSV Vaccine Completed 05/21/2023 CT Colonography Discontinued Cologuard (FIT-DNA) Discontinued Fecal Occult Blood Discontinued Sigmoidoscopy Discontinued Procedures Procedure Name Priority Date/Time Associated Diagnosis Comments PROTEIN CREATININE RATIO Routine 11/22/2024 12:28 PM EDT Stage 3b chronic kidney disease (HCC) Essential hypertension RENAL FUNCTION PANEL Routine 11/22/2024 12:28 PM EDT Stage 3b chronic kidney disease (HCC) Essential hypertension COMPLETE BLOOD COUNT Routine 04/22/2024 8:09 AM EDT Stage 3b chronic kidney disease (HCC) Essential hypertension COMPREHENSIVE METABOLIC PANEL STAT 02/19/2018 4:22 PM EDT from Last 3 Months or Most Recently Relevant to Health Maintenance Results * PROTEIN / CREATININE RATIO (11/22/2024 12:28 PM EDT) Protein, Urine Random 17 0 - 20 mg/dL 11/24/2024 10:47 AM EDT [facility] Creatinine, Ur Random (UCRR) 163.9 20.0 - 300.0 mg/dL 11/24/2024 10:47 AM EDT [facility] Protein/Creat Ratio 0.10 <0.15 mg/mg 11/24/2024 10:47 AM EDT [facility] Comment: Adult Proteinuria Categories: <0.15 mg/mg is considered normal to mildly increased 0.15 - 0.50 mg/mg is considered moderately increased >0.50 mg/mg is considered severely increased KDIGO. (2013). KDIGO 2012 Clinical Practice Guideline for the Evaluation and Management of Chronic Kidney Disease. Official Journal of the International Society of Nephrology, 3(1), 1-150. Urine URINE SPECIMEN / Unknown Non Blood / Unknown 11/22/2024 12:28 PM EDT 11/22/2024 12:30 PM EDT us Chelo Ng MD LABORATORY Final Res ult [facility] [address] [place] [address], * (ABNORMAL) RENAL FUNCTION PANEL (11/22/2024 12:28 PM EDT) Albumin 4.2 3.9 - 4.9 g/dL 11/22/2024 12:59 PM EDT [facility] Calcium, Total 9.1 8.5 - 10.2 mg/dL 11/22/2024 12:59 PM EDT [facility] Phosphorus 2.5(L) 2.7 - 4.8 mg/dL 11/22/2024 12:59 PM EDT [facility] Glucose 125(H) 74 - 99 mg/dL 11/22/2024 12:59 PM EDT [facility] Comment: The [place] Diabetes Association (ADA) provides guidance for cutoff values for fasting glucose and random glucose. The ADA defines fasting as no caloric intake for at least 8 hours. Fasting plasma glucose results between 100 to 125 mg/dL indicate increased risk for diabetes (prediabetes). Fasting plasma glucose results greater than or equal to 126 mg/dL meet the criteria for diagnosis of diabetes. In the absence of unequivocal hyperglycemia, results should be confirmed by repeat testing. In a patient with classic symptoms of hyperglycemia or hyperglycemic crisis, random plasma glucose results greater than or equal to 200 mg/dL meet the criteria for diagnosis of diabetes. Reference: Standards of Medical Care in Diabetes 2016, [place] Diabetes Association. Diabetes Care. 2016.39(Suppl 1). BUN 18 9 - 24 mg/dL 11/22/2024 12:59 PM EDT [facility] Creatinine 1.87(H) 0.73 - 1.22 mg/dL 11/22/2024 12:59 PM EDT [facility] Sodium 140 136 - 144 mmol/L 11/22/2024 12:59 PM T [facility] Potassium 4.7 3.7 - 5.1 mmol/L 11/22/2024 12:59 PM EDT [facility] Chloride 108(H) 98 - 107 mmol/L 11/22/2024 12:59 PM EDT [facility] CO2 24 22 - 30 mmol/L 11/22/2024 12:59 PM EDT [facility] Anion Gap 8 8 - 15 mmol/L 11/22/2024 12:59 PM T [facility] Estimated Glomerular Filtration Rate 36(L) >=60 mL/min/1. 73m 11/22/2024 12:59 PM T [facility] Comment:Estimated Glomerular Filtration Rate (eGFR) is calculated using the 2020 CKD-EPI creatinine equation. This equation utilizes serum creatinine, sex, and age as parameters. The creatinine assay has traceable calibration to isotope dilution- mass spectrometry. Refer to KDIGO guidelines for clinical interpretation. In patients with unstable renal function, e.g. those with acute kidney injury, the eGFR may not accurately reflect actual GFR. Blood BLOOD SPECIMEN / Unknown Venipuncture / Unknown 11/22/2024 12:28 PM EDT 11/22/2024 12:28 PM EDT us Chelo Ng MD LABORATORY Final Res ult [facility] [address] [place] [address] * (ABNORMAL) COMPLETE BLOOD COUNT (04/22/2024 8:09 AM EDT) WBC 5.65 3.70 - 11.00 k/uL 04/22/2024 8:14 AM EDT [facility] RBC 4.12(L) 4.20 - 6.00 m/uL 04/22/2024 8:14 AM EDT [facility] Hemoglobin 12.8(L) 13.0 - 17.0 g/dL 04/22/2024 8:14 AM EDT [facility] Hematocrit 39.1 39.0 - 51.0 % 04/22/2024 8:14 AM EDT [facility] MCV 94.9 80.0 - 100.0 fL 04/22/2024 8:14 AM EDT [facility] MCH 31.1 26.0 - 34.0 pg 04/22/2024 8:14 AM EDT [facility] MCHC 32.7 30.5 - 36.0 g/dL 04/22/2024 8:14 AM EDT [facility] RDW-CV 14.2 11.5 - 15.0 % 04/22/2024 8:14 AM EDT [facility] Platelet Count 252 150 - 400 k/uL 04/22/2024 8:14 AM EDT [facility] MPV 10.0 9.0 - 12.7 fL 04/22/2024 8:14 AM EDT [facility] Absolute nRBC <0.01 <0.01 k/uL 04/22/2024 8:14 AM EDT [facility] Blood BLOOD SPECIMEN / Unknown Venipuncture / Unknown 04/22/2024 8:09 AM EDT 04/22/2024 8:10 AM EDT us Chelo Ng MD LABORATORY Final Res ult [facility] [address] [place] [address] * (ABNORMAL) COMP METABOLIC PANEL (02/19/2018 4:22 PM EDT) Pathologist [facility] Protein, Total 7.0 6.3 - 8.0 g/dL 02/19/2018 4:52 PM EDT [facility] Albumin 4.2 3.9 - 4.9 g/dL 02/19/2018 4:52 PM EDT [facility] Calcium 8.9 8.5 - 10.2 mg/dL 02/19/2018 4:52 PM EDT [facility] Bilirubin, Total 0.4 0.2 - 1.3 mg/dL 02/19/2018 4:52 PM EDT [facility] Alkaline Phosphatase 49 36 - 108 U/L 02/19/2018 4:52 PM EDT [facility] AST 28 14 - 40 U/L 02/19/2018 4:52 PM EDT [facility] Glucose 107(H) 74 - 99 mg/dL 02/19/2018 4:52 PM EDT [facility] Comment: The [place] Diabetes Association (ADA) provides guidance for cutoff values for fasting glucose and random glucose. The ADA defines fasting as no caloric intake for at least 8 hours. Fasting plasma glucose results between 100 to 125 mg/dL indicate increased risk for diabetes (prediabetes). Fasting plasma glucose results greater than or equal to 126 mg/dL meet the criteria for diagnosis of diabetes. In the absence of unequivocal hyperglycemia, results should be confirmed by repeat testing. In a patient with classic symptoms of hyperglycemia or hyperglycemic crisis, random plasma glucose results greater than or equal to 200 mg/dL meet the criteria for diagnosis of diabetes. Reference: Standards of Medical Care in Diabetes 2016, [place] Diabetes Association. Diabetes Care. 2016.39(Suppl 1). BUN 14 9 - 24 mg/dL 02/19/2018 4:52 PM EDT [facility] Creatinine 1.64(H) 0.73 - 1.22 mg/dL 02/19/2018 4:52 PM EDT [facility] Sodium 144 136 - 144 mmol/L 02/19/2018 4:52 PM EDT [facility] Potassium 4.6 3.7 - 5.1 mmol/L 02/19/2018 4:52 PM EDT [facility] Chloride 109(H) 97 - 105 mmol/L 02/19/2018 4:52 PM EDT [facility] CO2 26 22 - 30 mmol/L 02/19/2018 4:52 PM EDT [facility] Anion Gap 9 9 - 18 mmol/L 02/19/2018 4:52 PM EDT [facility] ALT 18 10 - 54 U/L 02/19/2018 4:52 PM EDT [facility] eGFR- 50 02/19/2018 4:52 PM EDT [facility] eGFR-All Other Races 42 . 02/19/2018 4:52 PM EDT [facility] Comment: eGFR (Estimated GFR) Units of measure: mL/min/1.73 meters squared eGFR is derived from the reexpressed MDRD Study equation using the following parameters: serum creatinine, age, gender and race. The creatinine assay has been calibrated to be traceable to IDMS. An eGFR <60 mL/min/1.73m2 for >3 months is consistent with chronic kidney disease. Refer to KDOQI guidelines for clinical interpretation. In patients with unstable renal function, e.g. those with acute kidney injury, the eGFR may not accurately reflect actual GFR. Blood specimen (specimen) BLOOD SPECIMEN / Unknown 02/19/2018 4:22 PM EDT 02/19/2018 4:32 PM EDT us Marbin Tobar PA-C LABORATORY Final Resu lt [facility] [address] [place] [address] from Last 3 Months or Most Recently Relevant to Health Maintenance Insurance [address] [place] [address] MEDICARE Member Subscriber Plan / Payer (Ef fective 2011-Present) Name:Nickolas Sharpe Alyse Member ID:[id number] Relation to Subscriber:Self Name:Nickolas Sharpe Subscriber ID:[id number] Payer ID:Not on file Group ID:Not on file Type:Medicare Address: [address] [place] [address]
--- OUTSIDE RECORDS SUMMARY | 2024-12-14 10:53 | XMS_ITS | Encounter Summary ---
Author Organization [facility] Address [facility] [place] [id number] [address] [place] [address] Care Team Providers Care Artificial Inseminator Name Role Phone Pedro Hillman DO Primary Care Provider Encounter Details Date Type Department Care Team (Late st Contact Info) Description 02/21/2023 Orders Only [facility] - Family Medicine [address] [place] [address] Pedro Hillman DO [address], [place] [address] Social History Tobacco Use Types Packs/Day Years [...] 10/15/2022 PHQ-2 Answer Date Recorded Total Score 3 11/13/2022 Childcare Answer Date Recorded Childcare Unknown 12/16/2018 [...] Assessment Noted Time PHQ-9 Depression Total Score: 3 11/14/19 23 10:07 AM EDT documented as of this encounter Care Teams Artificial Inseminator Relationship Specialty Start Date End Date Pedro Hillman DO [address] [facility], [place] [address] PCP - General Family Medicine 03/25/22 documented as of this encounter
--- OUTSIDE RECORDS SUMMARY | 2024-12-14 10:53 | XMS_ITS | Encounter Summary ---
Author Organization [facility] Address [id number] [address] [place] [address] Care Team Providers Care Tool Repair Technician Name Role Phone SukumarPedro navarrete Primary Care Provider [phone] Encounter Details Date Type Department Care Team (Late st Contact Info) Description 10/28/2023 Orders Only [facility] - Family Medicine [address] [place] [address] External, Scanning Provider Social History Tobacco Use [...] often do you attend chur ch or amish services? Never 04/08/2023 Do you belong to any clubs o r organizations such as congregational groups, unions, fraternal or athletic groups, or [...] Answer Date Recorded Total Score 0 07/01/2023 [facility] of Occupat ional Health - Occupational Stress [...] Recorded Do you need help finding a [facility] and/or a training program? No [...] Procedure Name Priority Date/Time Associated Diagnosis Comments PM ED RENAL ULTRASOUND Routine 10/23/2023 8:47 AM EDT CYTOLOGY URINE SPECIMEN Routine 10/17/2023 8:43 AM EDT documented in this encounter Results * Renal Ultrasound (10/23/2023 8:47 AM EDT) us Scanning Provider External PROCEDURE/MINOR SURGI SASHA ORDERABLES Final Result Performing Organization Address [facility] Co de Phone Number MANUALLY TRANSCRIBED RESULTS * Cytology urine specimen (10/17/2023 8:43 AM EDT) us Scanning Provider External URINE ORDERABLES Ignacia l Result Performing Organization Address [facility] Co de Phone Number MANUALLY TRANSCRIBED RESULTS documented in this encounter Visit Diagnoses Not on filedocumented in this encounter Additional Health Concerns Assessment Noted Time PHQ-9 Depression Total Score: 0 07/01/20 7:05 AM EST A Body Mass Index follow-up plan has been documented for the patient 07/01/2023 7:38 AM EST documented as of this encounter Care Teams Tool Repair Technician Relationship Specialty Start Date End Date Pedro Hillman DO [address] [place] [address] PCP - General Family Medicine 03/25/22 documented as of this encounter
--- OUTSIDE RECORDS SUMMARY | 2024-12-14 10:53 | XMS_ITS | Encounter Summary ---
Author Organization [facility] [employer] [facility] Address [facility] [id number] [address] [place] [address] Care Team Providers Care Extension Work Director Name Role Phone Pedro Hillman DO Primary Care Provider [phone] Reason for Visit * Reason Onset Date Comments Med Refill 10/30/2022 Encounter Details Date Type Department Care Team (Late st Contact Info) Description 10/30/2022 Refill [facility] - Family Medicine [address] [place] [address] Pedro Hillman DO [address], [facility] [address] Social History Tobacco Use Types Packs/Day Years [...] documented as of this encounter Care Teams Extension Work Director Relationship Specialty Start Date End Date Pedro Hillman DO [address] [facility], [place] [address] PCP - General Family Medicine 03/25/22 documented as of this encounter
--- OUTSIDE RECORDS SUMMARY | 2024-12-14 10:53 | XMS_ITS | Encounter Summary ---
Author Organization [facility] Sys tem Address [facility] [place]-[id number] [address] [place] [address] Care Team Providers Care Aluminum Can Collector Name Role Phone SukumarPedro navarrete Scott SPARROW Primary Care Provider +[phone] Encounter Details Date Type Department Care Team (Late st Contact Info) Description 10/18/2022 Orders Only [facility] - Family Medicine [address] [place] [address] Jennifer Justin CMA Chronic neck pain; Acute pain of right shoulder Social History Tobacco Use Types Packs/Day Years Used Date Smoking Tobacco: Former Cigarettes 2 30 1 - 1989 Smokeless Tobacco: Never Alcohol [...] Name Priority Date/Time Associated Diagnosis Comments XR SHOULDER RT MIN 2 VWS Routine 10/18/2022 8:37 AM EDT Chronic neck pain Acute pain of right shoulder documented in this encounter Results * X-ray shoulder right minimum 2 views (10/18/2022 8:37 AM EDT) Anatomical Region Laterality Modality MSK, Upper Extremities, Shoulder Right Computed Radiography us Pedro Hillman DO IMG DIAGNOSTIC IMAGING ORDER SUPA Final Result documented in this encounter Visit Diagnoses Diagnosis Chronic neck pain Cervicalgia Acute pain of right shoulder documented in this encounter Additional Health Concerns Assessment Noted Time PHQ-9 Depression Total Score: 24 023 2:27 PM EDT documented as of this encounter Care Teams Aluminum Can Collector Relationship Specialty Start Date End Date Pedro Hillman DO [address] [facility], [place] [address] PCP - General Family Medicine 03/25/22 documented as of this encounter
--- OUTSIDE RECORDS SUMMARY | 2024-12-14 10:53 | XMS_ITS | Encounter Summary ---
Author Organization [facility] Sys tem Address [facility] [id number] [address] [place] [address] Care Team Providers Care Consulting Analyst Name Role Phone CassidyPedro bhatti Primary Care Provider [phone] Encounter Details Date Type Department Care Team (Late st Contact Info) Description 11/06/2022 Orders Only [facility] - Family Medicine [address] [place] [address] Jennifer Justin CMA Syncope and collapse Social History Tobacco Use Types Packs/Day Years Used Date Smoking Tobacco: Former Cigarettes 2 1 1989 Smokeless Tobacco: Never Alcohol Use [...] Procedure Name Priority Date/Time Associated Diagnosis Comments EVENT MONITOR Routine 11/06/2022 4:35 PM EDT Syncope and collapse documented in this encounter Results * Event monitor (11/06/2022 4:35 PM EDT) Anatomical Region Laterality Modality Chest N/A Other Esperanza Jon RIBBON SWEATBAND OPERATOR-OFFBEARER SEWER [employer] [facility] CLAIRE TREJO Final Result documented in this encounter Visit Diagnoses Diagnosis Syncope and collapse documented in this encounter Additional Health Concerns Assessment Noted Time PHQ-9 Depression Total Score: 24 023 2:27 PM EDT documented as of this encounter Care Teams Consulting Analyst Relationship Specialty Start Date End Date Pedro Hillman DO [address] [facility], [place] [address] PCP - General Family Medicine 03/25/22 documented as of this encounter
--- OUTSIDE RECORDS SUMMARY | 2024-12-14 10:53 | XMS_ITS | Encounter Summary ---
Author Organization [facility] Sys tem Address [facility] [place]-[id number] [address] [place] [address] Care Team Providers Care Quilt Stuffer Name Role Phone Pedro Hillman DO Primary Care Provider Encounter Details Date Type Department Care Team (Late st Contact Info) Description 10/21/2023 Orders Only [facility] - Family Medicine [address] [place] [address] Pedro Hillman DO [address] [place] [address] Social History Tobacco Use Types Packs/Day Years [...] often do you attend chur ch or sikhism services? Never 04/08/2023 Do you belong to any clubs o r organizations such as methodist groups, unions, fraternal or athletic groups, or [...] Answer Date Recorded Total Score 0 07/01/2023 [facility] of Occupat ional Health - [...] Recorded Do you need help finding a [facility] career center and/or a training program? [...] documented as of this encounter Care Teams Quilt Stuffer Relationship Specialty Start Date End Date Pedro Hillman DO [address] [place], [place] [address] PCP - General Family Medicine 03/25/22 documented as of this encounter
--- OUTSIDE RECORDS SUMMARY | 2024-12-14 10:53 | XMS_ITS | Encounter Summary ---
[facility] [id number] [address] [place] [address] Care Team Providers Care Yield Clerk Name Role Phone Pedro Hillman DO Primary Care Provider Encounter Details Date Type Department Care Team (Late st Contact Info) Description 06/02/2023 Orders Only [facility] - Family Medicine [address] [place] [address] Pedro Hillman DO [address], [place] [address] Social History Tobacco Use Types Packs/Day Years [...] often do you attend chur ch or shinto services? Never 04/08/2023 Do you belong to any clubs o r organizations such as evangelical groups, unions, fraternal or athletic groups, or [...] PHQ-2 Answer Date Recorded Total Score 0 04/10/2023 [facility] Occupat ional Health - [...] Recorded Do you need help finding a [facility] career center and/or a training program? No 04/08/2023 Hunger Screening Answer Date Recorded Within the past 12 months we worried whether our food would run out before we got money to buy more. Never True 04/08/2023 Within the past 12 months th e food we bought just didn't last and we didn't have money to get more. Never True 04/08/2023 Purpose - Life Answer Date Recorded I [...] Noted Time PHQ-9 Depression Total Score: 0 04/10/20 23 3:54 PM EDT documented as of this encounter Care Teams Yield Clerk Relationship Specialty Start Date End Date Pedro Hillman DO [address] [facility], [place] [address] PCP - General Family Medicine 03/25/22 documented as of this encounter
--- OUTSIDE RECORDS SUMMARY | 2024-12-14 10:53 | XMS_ITS | Encounter Summary ---
Author Organization [facility] Sys tem Address [facility] [id number] [address] [place] [address] Care Team Providers Care Machine Engineer Name Role Phone CassidyPedro bhatti Primary Care Provider Encounter Details Date Type Department Care Team (Late st Contact Info) Description 10/17/2022 Orders Only [facility] - Family Medicine [address] [place] [address] External, Scanning Provider Social History Tobacco Use [...] Priority Date/Time Associated Diagnosis Comments XR CHEST 1 VW Routine 10/17/2022 documented in this encounter Results * X-ray chest 1 view (10/17/2022) Anatomical Region Laterality Modality Body, Chest N/A Computed Radiogr aphy us Scanning Provider External IMG DIAGNOSTIC IMAGIN G ORDERABLES Final Result documented in this encounter Visit Diagnoses Not on filedocumented in this encounter Additional Health Concerns Assessment Noted Time PHQ-9 Depression Total Score: 24 023 2:27 PM EDT documented as of this encounter Care Teams Machine Engineer Relationship Specialty Start Date End Date Pedro Hillman DO [address] [facility], [place] [address] PCP - General Family Medicine 03/25/22 documented as of this encounter
--- OUTSIDE RECORDS SUMMARY | 2024-12-14 10:53 | XMS_ITS | Encounter Summary ---
Author Organization [facility] Address [address] [place] [address] Care Team Providers Care Felt Finisher Name Role Phone Unavailable Primary Care Provider Unavailabl e Source Comments In the event this information is protected by the Federal Confidentiality of Alcohol and Drug AbusePatient Records regulations: The Federal rules restrict any use of the information to criminally investigate or prosecute any alcohol or drug abuse patient.[facility] Encounter Details Date Type Department Care Team (Late st Contact Info) Description 10/10/2024 Patient Msg Kidney Medicine [facility] [address] [place] [address] [place] [address] [place] [address] Appointment Request Social History Tobacco Use Types Packs/Day Years [...] is lower risk 9 11/08/2022 Data from: https://www.neighborhoodatlas.medicine.[facility].edu/. Last address used for calculation [address] 11/08/2022 Sex and Gender Information [...]
--- OUTSIDE RECORDS SUMMARY | 2024-12-14 10:53 | XMS_ITS | Encounter Summary ---
Author Organization [facility] Sys tem Address [facility] [place][id number] [address] [place] [address] Care Team Providers Care Antique Furniture Restorer Name Role Phone Pedro Hillman DO Primary Care Provider Encounter Details Date Type Department Care Team (Late st Contact Info) Description 11/26/2022 Orders Only [facility] - Family Medicine [address] [place] [address] Pedro Hillman DO [address], [place] [address] Social History Tobacco Use Types Packs/Day Years [...] documented as of this encounter Care Teams Antique Furniture Restorer Relationship Specialty Start Date End Date Pedro Hillman DO [address] [facility], [place] [address] PCP - General Family Medicine 03/25/22 documented as of this encounter
--- OUTSIDE RECORDS SUMMARY | 2024-12-14 10:53 | XMS_ITS | Clinical Summary ---
Author Organization [facility] Address [address] [place] [address] Phone Care Team Providers Care Instruction Librarian Name Role Phone Pedro Hillman DO Primary Care Provider Allergies Active Allergy Reactions Criticality Noted Date Comments Buspirone Other,Rash Low 02/07/2015 Medications ALPRAZolam (Xanax) 0.5 mg tablet 3 times a day. 02/24/2018 Active magnesium oxide (Mag-Ox) 400 mg (241.3 mg magnesium) tablet Take 1 tablet (400 mg) by mouth once daily. Active oxyCODONE-aceta minophen (Percocet) 5-325 mg tablet every 6 hours. One tablet twice daily if needed. 02/08/2022 Active sertraline (Zoloft) 100 mg tablet 2 tablets (200 mg) once daily. 02/07/2018 Active traZODone (Desyrel) 100 mg tablet 2 tablets (200 mg) once daily at bedtime. 02/13/2018 Active VITAMIN B COMPLEX ORAL Take 1 capsule by mouth once daily. Active aspirin 81 mg EC tablet Take 1 tablet (81 mg) by mouth once daily. Active atorvastatin (Lipitor) 40 mg tablet Take 1 tablet (40 mg) by mouth once daily. 07/21/2024 Active gabapentin (Neurontin) 300 mg capsule Take 1 capsule (300 mg) by mouth once daily. 07/26/2024 Active clopidogrel (Plavix) 75 mg tabletIndicatio ns:Single vessel coronary artery disease Take 4 tablets ( 300mg) x one only then reduce to one tablet daily 94 tablet 3 07/28/2024 Active Active Problems Problem Noted Date Diagnosed Date Single vessel coronary artery disease 07/28/2024 Mixed hyperlipidemia 07/28/2024 Fatigue 11/18/2023 BMI 27.0-27.9,adult 11/18/2023 Former smoker 11/18/2023 Autonomic neuropathy 08/26/2023 Orthostatic hypotension 08/26/2023 Hypertensive kidney disease with stage 3b chronic kidney disease (Multi) 07/15/2022 Chronic depression 11/22/2020 Encounters Date Type Department Care Team Description 09/23/2024 Documentation [facility] [address] [facility] [address] [place] [address] Lorena Davila, RN 09/23/2024 Patient Outreach [facility] [address] [facility] [address] [place] [address] Lorena Davila, RN from Last 3 Months Immunizations Immunization Administration Dates Next Due Flu vaccine (IIV4), preserva tive free *Check age/dose* 03/26/2020,03/30/2017,04/24/2015 Influenza Nasal, Unspecified 03/29/2014, 06/02/2013,05/12/2012,04/02,03/29/2010,04/03/2009,05/03/2008 Influenza, Unspecified 04/25/2022 Influenza, trivalent, adjuvanted 03/13/2019,1012/2017 Pneumococcal conjugate vacci ne, 13-valent (PREVNAR 13) 03/13/2019 Pneumococcal polysaccharide vaccine, 23-valent, age 2 years and older (PNEUMOVAX 23) 01/23/2015 Pneumococcal, Unspecified 06/02/2013 Tdap vaccine, age 7 year and older (BOOSTRIX, ADACEL) 09/05/2022,02/25/2021 Zoster vaccine, recombinant, adult (SHINGRIX) 03/26/2018,01/23/2018 Family History Medical History Relation Name Comments Brain cancer Brother Diabetes Brother Heart attack Brother Prostate cancer Brother ptca Brother Cancer Father cabg Sister Relation Name Status Comments Brother Father Sister Social History Tobacco Use Types Packs/Day Years Used Date Smoking Tobacco: Former Cigarettes Q uit: 1984 Smokeless Tobacco: Never Tobacco Cessation:Counseling Given: Yes Alcohol Use Standard Drinks/Week Comments Not Currently [...] Sign Reading Time Taken Comments Blood Pressure 136/86 07/28/2024 2:51 PM EST Pulse 80 07/28/2024 2:51 PM EST Temperature - - Respiratory Rate - - Oxygen Saturation - - Inhaled Oxygen Concentration - - Weight 94.8 kg (209 lb) 07/28/2024 2:51 PM EST Height 185.4 cm (6' 1 ) 07/28/2024 2:51 PM EST Body Mass Index 27.57 07/28/2024 2:51 PM EST Plan of Treatment Upcoming Encounters Date Type Department Care Team (Late st Contact Info) Description 02/02/2025 2:40 PM EDT Office Visit [facility] [address] [phone] Aisha Roque MD [address] [facility], [facility] [address] [place] [address] Health Maintenance Due Date Last Done Comments Lipid Panel 1945 Medicare Annual Wellness Visit (AWV) 1945 Diabetes Screening 01/10/1964 Hepatitis C Screening 01/10/1964 CKD: Urine Protein Screening 1965 COVID-19 Vaccine ( season) 2024 06/03/2023, 05/14/2022, 11/22/2021, Additional history exists Influenza Vaccine (Season Ended) 2025 05/21/2023, 05/26/2022, 04/25/2022, Additional history exists DTaP/Tdap/Td Vaccines (4 - Td or Tdap) 07/27/2034 07/27/2024, 09/05/2022, 02/25/2021 Zoster Vaccines Completed 03/26/2018, 01/23/2018 Pneumococcal Vaccine Completed 03/13/2019, 01/23/2015, 06/02/2013 RSV High Risk: (Elderly (60+) or Population) Completed 05/21/2023 HIB Vaccines Aged Out No longer eligi ble based on patient's age to complete this topic HPV Vaccines Aged Out No longer eligi ble based on patient's age to complete this topic Hepatitis A Vaccines Aged Out No long er eligible based on patient's age to complete this topic Hepatitis B Vaccines Aged Out No long er eligible based on patient's age to complete this topic IPV Vaccines Aged Out No longer eligi ble based on patient's age to complete this topic Meningococcal Vaccine Aged Out No erbecca edgar eligible based on patient's age to complete this topic Rotavirus Vaccines Aged Out No longer eligible based on patient's age to complete this topic Insurance GENERIC COMMERCIAL MEDICARE PART A AND B [facility] [id number] GENERIC COMMERCIAL MEDICARE PART A AND B Care Teams Instruction Librarian Relationship Specialty Start Date End Date Pedro Hillman DO PCP - General 11/29/22
--- OUTSIDE RECORDS SUMMARY | 2024-12-14 10:53 | XMS_ITS | Encounter Summary ---
Author Organization [facility] Sys tem Address [facility] [place][id number] [address] [place] [address] Care Team Providers Care Wastewater Treatment Plant Attendant Name Role Phone SukumarPedro navarrete Scott SPARROW Primary Care Provider [phone] Encounter Details Date Type Department Care Team (Late st Contact Info) Description 06/11/2024 Orders Only [facility] - Family Medicine [address] [place] [address] Ref Prov, [place] [address] Social History Tobacco Use Types Packs/Day Years [...] often do you attend chur ch or roman catholic services? Never 04/08/2023 Do you belong to any clubs o r organizations such as sikhism groups, unions, fraternal or athletic groups, or [...] Date Recorded Total Score 14 12/29/2023 [facility] of Occupat ional Health - [...] Procedure Name Priority Date/Time Associated Diagnosis Comments MR ANKLE LT W WO CONT Routine 06/02/2024 8:17 AM EST documented in this encounter Results * MR ankle left with and without contrast (06/02/2024 8:17 AM EST) Anatomical Region Laterality Modality MSK, Lower Extremities, Ankle, MSK Covera Left Magnetic Resonance us Not In System Ref Prov IMG MRI ORDERABLES Final Result documented in this encounter Visit Diagnoses Not on filedocumented in this encounter Additional Health Concerns Assessment Noted Time PHQ-9 Depression Total Score: 14 024 2:54 PM EDT A Body Mass Index follow-up plan has been documented for the patient 07/01/2023 7:38 AM EST documented as of this encounter Care Teams Wastewater Treatment Plant Attendant Relationship Specialty Start Date End Date Pedro Hillman DO [address] [place] [address] PCP - General Family Medicine 03/25/22 documented as of this encounter
--- OUTSIDE RECORDS SUMMARY | 2024-12-14 10:53 | XMS_ITS | Encounter Summary ---
Author Organization [facility] Sys tem Address [facility] [place]-[id number] [address] [place] [address] Care Team Providers Care Quality Compliance Manager Name Role Phone Pedro Hillman DO Primary Care Provider [phone] Reason for Visit * Reason Comments Med Refill Encounter Details Date Type Department Care Team (Late st Contact Info) Description 11/26/2022 Refill [facility] - Family Medicine [address] [place] [address] Pedro Hillman DO [address], [facility] [place] [address] Anxiety (Primary Dx) Social History Tobacco Use Types Packs/Day Years [...] as of this encounter Visit Diagnoses Diagnosis Anxiety- Primary Anxiety state, unspecified documented in this encounter Additional Health Concerns Assessment Noted Time PHQ-9 Depression Total Score: 3 11/14/19 23 10:07 AM EDT documented as of this encounter Care Teams Quality Compliance Manager Relationship Specialty Start Date End Date Pedro Hillman DO [address] [facility], [place] [address] PCP - General Family Medicine 03/25/22 documented as of this encounter
--- OUTSIDE RECORDS SUMMARY | 2024-12-14 10:53 | XMS_ITS | Encounter Summary ---
Author Organization [facility] Sys tem Address [facility] [id number] [address] [place] [address] Care Team Providers Care Superintendent Drivers Name Role Phone CassidyPedro bhatti Primary Care Provider [phone] Encounter Details Date Type Department Care Team (Late st Contact Info) Description 11/04/2022 Orders Only [facility] - Family Medicine [address] [place] [address] Nichole Healy CMA Nodule of right lung Social History Tobacco Use Types Packs/Day Years [...] Procedure Name Priority Date/Time Associated Diagnosis Comments CT CHEST W CONT Routine 11/04/2022 10:42 AM EDT Nodule of right lung documented in this encounter Results * CT chest with contrast (11/04/2022 10:42 AM EDT) Anatomical Region Laterality Modality Body, Lung, Chest, Body Covera N/A C omputed Tomography us Pedro Hillman DO IMG CT ORDERABLES Final Resu lt documented in this encounter Visit Diagnoses Diagnosis Nodule of right lung Other diseases of lung, not elsewhere classified documented in this encounter Additional Health Concerns Assessment Noted Time PHQ-9 Depression Total Score: 24 023 2:27 PM EDT documented as of this encounter Care Teams Superintendent Drivers Relationship Specialty Start Date End Date Pedro Hillman DO [address] [facility], [place] [address] PCP - General Family Medicine 03/25/22 documented as of this encounter
--- OUTSIDE RECORDS SUMMARY | 2024-12-14 10:53 | XMS_ITS | Encounter Summary ---
Author Organization [facility] Address [address] [place] [address] Care Team Providers Care Chemistry Lab Instructor Name Role Phone Unavailable Primary Care Provider Unavailabl e Source Comments In the event this information is protected by the Federal Confidentiality of Alcohol and Drug AbusePatient Records regulations: The Federal rules restrict any use of the information to criminally investigate or prosecute any alcohol or drug abuse patient.[facility] Encounter Details Date Type Department Care Team (Late st Contact Info) Description 08/27/2023 Patient Msg Kidney Medicine [facility] [address] [place] [id number] Chelo Ng MD [address] [place] [address] Appointment Request Social History Tobacco Use [...] is lower risk 9 11/08/2022 Data from: https://www.neighborhoodatlas.medicine.[facility].edu/. Last address used for calculation [address] [place] [address] [address] 11/08/2022 Sex and Gender Information [...]
--- OUTSIDE RECORDS SUMMARY | 2024-12-14 10:53 | XMS_ITS | Encounter Summary ---
Author Organization [facility] Sys tem Address [facility] [id number] [address] [place] [address] Care Team Providers Care Travel Ot Name Role Phone CassidyPedro bhatti Primary Care Provider Encounter Details Date Type Department Care Team (Late st Contact Info) Description 12/23/2022 Orders Only [facility] - Family Medicine [address] [place] [address] External, Scanning Provider Social History Tobacco Use Types Packs/Day Years Used Date Smoking Tobacco: Former Cigarettes 2 - 1989 Smokeless Tobacco: Never Alcohol Use [...] Priority Date/Time Associated Diagnosis Comments XR SHOULDER LT MIN 2 VWS Routine 12/23/2022 documented in this encounter Results * X-ray shoulder left minimum 2 views (12/23/2022) Anatomical Region Laterality Modality MSK, Upper Extremities, Shoulder Left Computed Radiography us Scanning Provider External IMG DIAGNOSTIC IMAGIN G ORDERABLES Final Result documented in this encounter Visit Diagnoses Not on filedocumented in this encounter Additional Health Concerns Assessment Noted Time PHQ-9 Depression Total Score: 3 11/14/19 23 10:07 AM EDT documented as of this encounter Care Teams Travel Ot Relationship Specialty Start Date End Date Pedro Hillman DO [address] [facility], [place] [address] PCP - General Family Medicine 03/25/22 documented as of this encounter
--- OUTSIDE RECORDS SUMMARY | 2024-12-14 10:53 | XMS_ITS | Encounter Summary ---
Author Organization [facility] Sys tem Address [facility] [place]-[id number] [address] [place] [address] Care Team Providers Care Sign Maker Name Role Phone Pedro Hillman DO Primary Care Provider Encounter Details Date Type Department Care Team (Late st Contact Info) Description 11/11/2022 Orders Only [facility] - Family Medicine [address] [place] [address] Pedro Hillman DO [address], [place] [address] Social History Tobacco Use Types Packs/Day Years [...] documented as of this encounter Care Teams Sign Maker Relationship Specialty Start Date End Date Pedro Hillman DO [address] [facility], [place] [address] PCP - General Family Medicine 03/25/22 documented as of this encounter
[2024-12-14 11:33] LABS: Basophils Percent Auto 0.6 % (0.2-2.0); Eosinophils Absolute Auto 0.1 10^3/uL (0.0-0.7); Eosinophils Percent Auto 2.6 % (0.9-7.0); Hematocrit 39.6 % (42.0-54.0); Hemoglobin 12.8 g/dL (14.0-18.0); Immature Granulocytes Abs Auto 0.01 10^3/uL (0.00-0.03); Immature Granulocytes Pct Auto 0.2 % (0.0-0.5); Lymphocytes Absolute Auto 1.3 10^3/uL (1.2-3.8); Lymphocytes Percent Auto 26.7 % (20.5-60.0); Mean Corpuscular HGB Conc 32.3 g/dL (29.9-35.2); Mean Corpuscular Hemoglobin 30.7 pg (25.9-34.0); Mean Platelet Volume 10.6 fL (9.5-13.5); Monocytes Absolute Auto 0.5 10^3/uL (0.3-0.8); Monocytes Percent Auto 9.3 % (1.7-12.0); Neutrophils Percent Auto 60.6 % (43.0-75.0); Platelet Count 202 10^3/uL (150-450); Red Blood Count 4.17 10^6/uL (4.70-6.10); Red Cell Distribution Width 13.5 % (11.0-15.0); White Blood Count 4.9 10^3/uL (4.0-11.0)
[2024-12-14 11:35] LABS: Alanine Aminotransferase 22 U/L (16-63); Albumin Globulin Ratio 1.1; Albumin Level 3.4 g/dL (3.4-5.0); Alkaline Phosphatase 53 U/L (46-116); Aspartate Amino Transferase 27 U/L (15-37); BUN Creatinine Ratio 7.5; Bilirubin Total 0.4 mg/dL (0.2-1.0); Calcium 8.5 mg/dL (8.5-10.1); Carbon Dioxide 28.2 mmol/L (21.0-32.0); Chloride 108 mmol/L (98-107); Estimated GFR (African America 43 (>=60 mL/min/1.73m^2); Estimated GFR (Non-African Ame 35 (>=60 mL/min/1.73m^2); Glucose 117 mg/dL (74-106); Potassium 4.2 mmol/L (3.5-5.1); Sodium 143 mmol/L (136-145); Total Protein 6.4 g/dL (6.4-8.2)
[2024-12-14 11:46] LABS: Bilirubin Urine SMALL (NEGATIVE); Blood Urine NEGATIVE (NEGATIVE); Clarity Urine CLEAR (CLEAR); Color Urine YELLOW (YELLOW); Glucose Urine UA NEGATIVE (NEGATIVE); Ketones Urine TRACE mg/dL (NEGATIVE); Leukocyte Esterase Urine SMALL (NEGATIVE); Nitrite Urine NEGATIVE (NEGATIVE); Protein Urine 100 mg/dL (NEG/TRACE); Specific Gravity Urine 1.025 (1.005-1.025)
[2024-12-14 11:54] LABS: Urine Culture Indicated YES-FRMC; Urine Microscopic Indicated YES
[2024-12-14 12:02] LABS: Bacteria Urine SMALL #/HPF (NONE SEEN); RBC Urine 0-2 #/HPF (0-2); Squamous Epithelial Cell Urine FEW #/LPF (NONE/RARE)
[2024-12-14 12:03] LABS: Cast Seen? NONE SEEN #/LPF (NONE SEEN); Crystals Seen? None Seen #/HPF (None Seen); Mucus Urine SMALL (NONE SEEN)
== END 2024-12-14 12:32 | disposition home or self-care (01) ==
PROVIDERS: Emergency Provider Emergency Medicine; PCP Family Medicine
DX: R10.31 Right lower quadrant pain (principal); R10.33 Periumbilical pain; K59.00 Constipation, unspecified
CPT/HCPCS: 36415; 74176; 80053; 81001; 85025; 87086; 87088; 87186; 99284